=== PATIENT | female | born 1945 | race Caucasian/White ===

== ENCOUNTER 2019-09-06 12:38 | Outpatient (CLI) | payer MEDICARE, SELFPAY ==
--- NOTE | ~2019-09-06 | CT_ITS ---
EXAMINATION: CT chest abdomen pelvis w con DATE: 09/06/2019 17:13 CDT INDICATION: Renal cell carcinoma. TECHNIQUE: Computed tomography (CT) of the chest, abdomen, and pelvis was performed with 100 cc Omnip aque 350 intravenous contrast. The dose-length product was 957.58 mGy-cm. Automated exposure control and iterative reconstruction technique were employed. COMPARISON: CT dated 12/25/2018 FINDINGS: CHEST CT: Heart size is normal. There are bilateral breast implants with areas of capsular calcification. Thyro id gland is unremarkable. There are nonenlarged mediastinal lymph nodes, likely reactive. There is a right lower lobe 6 x 3 mm nodule, image 53. There are groundglass densities of the right upper lobe. Stable 6 mm right middle lobe nodule, image 68 there is a 6 mm lingular nodule, image 75. This does n ot appear significantly changed from prior study. No endobronchial lesions. No significant pleural or pericardial effusions.. ABDOMEN/PELVIS CT: There is atherosclerosis of the aorta without evidence for aneurysm. Status post left nephrectomy and adrenalectomy. No free air or free fluid. No lymphadenopathy. The liver, spleen, pancreas, right adrenal gland and right kidney are unremarkable. There are gallsto annie. There is a ventral hernia containing nonobstructed small bowel. There is a periumbilical hernia containing nonobstructed small bowel. No evidence for bowel obstruction. Colonic diverticulosis witho ut evidence for diverticulitis. Normal appendix. No abnormal pelvic masses or fluid collections. Mild -moderate thoracic and lumbar spondylosis. No osteolytic or osteoblastic lesions. IMPRESSION: 1. New supraumbilical and periumbilical ventral hernias containing nonobstructed small bowel. 2: Small bilateral pulmonary nodules measuring 6 mm or less. The right lower lobe nodule on image 53 not definitely visualized on prior examinations. Recommend follow-up low dose CT in 6 months. 3: Status post left nephrectomy with adrenalectomy. No evidence for residual/recurrent neoplasm. 4: Cholelithiasis. Reviewed, dictated and finalized at location A. IMPRESSION: 1. New supraumbilical and periumbilical ventral hernias containing nonobstructe d small bowel. 2: Small bilateral pulmonary nodules measuring 6 mm or less. The right lower lo be nodule on image 53 not definitely visualized on prior examinations. Recommen d follow-up low dose CT in 6 months. 3: Status post left nephrectomy with adrenalectomy. No evidence for residual/re current neoplasm. 4: Cholelithiasis.
[2019-09-06 13:35] LABS: Estimated Glomerular Filt Rate 37
== END 2019-09-06 12:39 | disposition home or self-care (01) ==
PROVIDERS: PCP Family Medicine; Visit Provider Internal Medicine Hematology & Oncology
DX: C64.1 Malignant neoplasm of right kidney, except renal pelvis (principal); K42.9 Umbilical hernia without obstruction or gangrene; R91.8 Other nonspecific abnormal finding of lung field; Z90.5 Acquired absence of kidney; K80.20 Calculus of gallbladder without cholecystitis without obstruction
CPT/HCPCS: 36415; 71260; 74177; Q9967

== ENCOUNTER 2020-02-01 09:21 | Outpatient (CLI) | payer MEDICARE, SELFPAY ==
--- NOTE | ~2020-02-01 | CT_ITS ---
EXAMINATION: CT chest abdomen pelvis w con DATE: 02/01/2020 10:30 INDICATION: Malignant neoplasm of the right kidney TECHNIQUE: Computed tomography (CT) of the chest, abdomen, and pelvis was performed with 100 mL Omnip aque-350 intravenous contrast. Automated exposure control and iterative reconstruction technique were employed. The dose-length product was 1188.41 mGy-cm. COMPARISON: Chest CT dated 09/06/[address] of the abdomen and pelvis dated 12/25/2018 FINDINGS: CHEST CT: No interval change in a pair of 4-5 mm nodules along the anterior margin of the superior segment of t he right lower lobe. Small calcified nodule in the right upper lobe consistent with old granulomatous disease. Unchanged small flat triangular intrafissural lymph node along the left major fissure. Unch anged pleural parenchymal scarring along the posterior medial right lower lobe along side several pro minent endplate osteophytes at the mid to lower thoracic spine. No new or enlarging pulmonary nodules identified. No pneumonia, pulmonary edema or pleural effusion. Unchanged 5 mm nodules in the right m iddle lobe and lingula. Heart size is normal. No pericardial effusion. No pathologically enlarged tho racic lymphadenopathy. Peripheral calcifications at bilateral breast implants. Chronic mild anterior wedging at T8. ABDOMEN/PELVIS CT: Calcified gallstones within the normal-appearing gallbladder. Liver, spleen, right adrenal gland and kidney are normal. Left adrenal gland and kidney are likely surgically absent. 1.4 cm avidly enhancin g nodule at the head of the pancreas raising concern for malignancy either primary or metastatic. Mul tiple loops of nonobstructed small bowel extend into a wide mouthed ventral hernia. Colon and appendi x are normal. Bladder, uterus and bilateral adnexa are unremarkable. No free intraperitoneal gas or f luid. No pathologically enlarged abdominal or pelvic lymphadenopathy. Mild lumbar dextrocurvature wit h moderate to severe facet osteoarthritis. No suspicious lytic or blastic bone lesions. IMPRESSION: 1. New 1.4 cm avidly enhancing nodule at the head of the pancreas concerning for malignancy. The incr eased enhancement would be more typical of metastatic renal cell carcinoma rather than primary pancre atic adenocarcinoma. No other lesions suspicious for metastatic disease. 2. No interval change in a few 5 mm smaller pulmonary nodules, most likely benign but would recommend continued radiographic follow-up. 3. Cholelithiasis. 4. Wide mouth ventral hernia containing multiple loops of nonobstructed bowel. Reviewed, dictated and finalized at location B. IMPRESSION: 1. New 1.4 cm avidly enhancing nodule at the head of the pancreas concerning fo r malignancy. The increased enhancement would be more typical of metastatic avani al cell carcinoma rather than primary pancreatic adenocarcinoma. No other lesio ns suspicious for metastatic disease. 2. No interval change in a few 5 mm smaller pulmonary nodules, most likely reagan gn but would recommend continued radiographic follow-up. 3. Cholelithiasis. 4. Wide mouth ventral hernia containing multiple loops of nonobstructed bowel.
[2020-02-01 10:02] LABS: Estimated Glomerular Filt Rate 44
== END 2020-02-01 09:22 | disposition home or self-care (01) ==
PROVIDERS: PCP Family Medicine; Visit Provider Internal Medicine Hematology & Oncology
DX: C64.1 Malignant neoplasm of right kidney, except renal pelvis (principal); K86.89 Other specified diseases of pancreas; K80.20 Calculus of gallbladder without cholecystitis without obstruction; K43.9 Ventral hernia without obstruction or gangrene
CPT/HCPCS: 71260; 74177; Q9967

== ENCOUNTER 2020-02-11 08:16 | Outpatient (CLI) | payer MEDICARE, SELFPAY ==
[2020-02-11 08:39] LABS: Basophils Percent Auto 0.5 % (0.2-1.2); Eosinophils Absolute Auto 0.2 K/mm3 (0-0.3); Eosinophils Percent Auto 3.5 % (0-4.4); Hematocrit 36.6 % (37.0-47.0); Hemoglobin 12.4 g/dL (12.0-15.0); Immature Granulocyte Absolute 0.03 K/mm3 (0.00-0.031); Immature Granulocyte Percent A 0.5 % (0-0.5); Lymphocytes Absolute Auto 1.31 K/mm3 (0.9-3.2); Lymphocytes Percent Auto 19.8 % (18.3-44.2); Mean Corpuscular HGB Conc 33.9 g/dl (32-36); Mean Corpuscular Hemoglobin 30.4 pg (26-34); Mean Corpuscular Volume 89.7 fl (80-100); Mean Platelet Volume 11.9 fl (7.4-10.4); Monocytes Absolute Auto 0.4 K/mm3 (0.1-0.6); Monocytes Percent Auto 6.2 % (2.6-8.5); Neutrophils Absolute Auto 4.6 K/mm3 (1.3-6.7); Neutrophils Percent Auto 69.5 % (45.5-73.1); Platelet Count Result 154 k/mm3 (150-375); Red Blood Count 4.08 M/mm3 (4.2-5.4); Red Cell Distribution Width 11.5 % (11.5-14.5); White Blood Count 6.6 K/mm3 (4.5-10.0)
[2020-02-11 08:48] LABS: Blood Urea Nitrogen 26 mg/dL (8-26); Carbon Dioxide 23 mmol/L (22-30); Chloride 102 mmol/L (98-109); Estimated Glomerular Filt Rate 40; Glucose 248 mg/dL (70-105); Potassium 4.9 mmol/L (3.5-4.9); Sodium 139 mmol/L (138-146)
[2020-02-11 11:33] LABS: Alanine Aminotransferase 13 U/L (4-35); Albumin Level 4.4 g/dL (3.5-5.1); Alkaline Phosphatase 88 U/L (38-126); Anion Gap 10 mmol/L (8-16); Aspartate Amino Transferase 21 U/L (14-36); Bilirubin,Total 0.4 mg/dL (0.2-1.3); Blood Urea Nitrogen 27 mg/dL (7-17); Calcium 9.2 mg/dL (8.4-10.2); Carbon Dioxide 23 mmol/L (22-30); Chloride 103 mmol/L (98-107); Estimated Glomerular Filt Rate 44; Glucose 257 mg/dL (65-105); Potassium 5.3 mmol/L (3.4-5.0); Sodium 136 mmol/L (137-145)
[2020-02-14 06:32] LABS: CA 19-9 9 U/mL (<34)
== END 2020-02-11 08:17 | disposition home or self-care (01) ==
PROVIDERS: PCP Family Medicine; Visit Provider Internal Medicine Hematology & Oncology
DX: C64.2 Malignant neoplasm of left kidney, except renal pelvis (principal); K86.89 Other specified diseases of pancreas
CPT/HCPCS: 36415; 80048; 80053; 85025; 86301

== ENCOUNTER 2020-02-19 08:48 | Outpatient (CLI) | payer MEDICARE, SELFPAY ==
--- NOTE | ~2020-02-19 | PE_ITS ---
EXAMINATION: PET skull to mid thigh DATE: 02/19/2020 12:50 INDICATION: Malignant neoplasm of left kidney. TECHNIQUE: Blood glucose level was 115 mg/dL. 9.844 mCi of 18-fluorodeoxyglucose (18-FDG) was adminis tered i.v. Low dose computed tomography (CT) images were acquired from the base of the brain to the p roximal thighs for attenuation correction and anatomic localization. Automated exposure control was e mployed. Dose-length product (DLP) was 847 mGy-cm. Positron emission tomography (PET) images were acq uired in the same distribution. COMPARISON: CT 02/01/2020, 01/16/2018, 12/25/2018, PET/CT 01/26/2018 FINDINGS: Head/neck: There is increased activity in the oral cavity, oropharynx, left submandibular gland, and glottis without CT correlate, likely physiologic. There are no pathologically enlarged lymph nodes. Chest: The lungs demonstrate mild scarring in paraspinal right lower lobe. No pleural effusion. Cardi omegaly is noted. No pericardial effusion. There is ectasia of ascending aorta measuring 4.1 cm. Ther e are bilateral breast implants. There are changes of left mastectomy. Abdomen/pelvis/proximal thighs: The liver is normal. There are gallstones in the gallbladder, which i s normal in size. The spleen is normal. The pancreas is normal. Right adrenal gland and right kidney are normal. There are changes of left nephrectomy and left adrenalectomy. There is a ventral hernia c ontaining nonobstructed small bowel. There is diverticulosis of the colon without evidence of diverti culitis. There are no pathologically enlarged lymph nodes. There is no free intraperitoneal fluid. IMPRESSION: 1. Normal pancreas. The hyperenhancing mass in the head of the pancreas seen by CT on 02/01/2020 is not visible and does not demonstrate increased activity. This finding was not present on 12/25/2018 and i s most likely metastatic renal cell carcinoma. Neuroendocrine tumor of the pancreas may have the same appearance. Reviewed, dictated and finalized at location A. IMPRESSION: 1. Normal pancreas. The hyperenhancing mass in the head of the pancreas seen by CT on 02/01/2020 is not visible and does not demonstrate increased activity. Thi s finding was not present on 12/25/2018 and is most likely metastatic renal cell carcinoma. Neuroendocrine tumor of the pancreas may have the same appearance.
[2020-02-19 09:38] LABS: Glucose Point of Care 115 (65-105)
== END 2020-02-19 08:49 | disposition home or self-care (01) ==
PROVIDERS: PCP Family Medicine; Visit Provider Internal Medicine Hematology & Oncology
DX: C64.2 Malignant neoplasm of left kidney, except renal pelvis (principal)
CPT/HCPCS: 78815; A9552

== ENCOUNTER 2020-02-28 08:40 | Outpatient (CLI) | payer MEDICARE, SELFPAY ==
--- NOTE | ~2020-02-28 | MR_ITS ---
EXAMINATION: MR abdomen wo/w con DATE: 02/28/2020 10:26 INDICATION: Secondary malignant neoplasm of the pancreas. TECHNIQUE: Magnetic resonance imaging (MRI) of the abdomen was performed without and with 13 mL Multi Blanco intravenous contrast. Sequences included coronal T2-weighted FS FSE, coronal and axial FIESTA F S, coronal LAVA-flex, axial LAVA, axial T2-weighted FSE, axial T1-weighted dual-echo FSPGR, axial STI R FSE, and axial DWI. Postcontrast sequences included coronal LAVA-flex and a time course of axial LA VA. COMPARISON: CT 02/01/2020, 12/25/2018, PET CT 02/19/2020 FINDINGS: There are bilateral breast implants. The liver and spleen are normal. There are gallstones in the gal lbladder, which is distended, likely secondary to fasting. There is a 1.4 cm hyperenhancing mass in t he head of the pancreas. The right adrenal gland is normal. There is cortical thinning in right kidne y. There is a 7 mm cyst in right kidney. There are changes of left nephrectomy and adrenalectomy. The re is a ventral hernia containing nonobstructed small bowel. There are no dilated loops of bowel. The re are no pathologically enlarged lymph nodes. There is no free intraperitoneal fluid. IMPRESSION: 1. 1.4 cm hyperenhancing mass in the head of the pancreas, new from 12/25/2018, most likely metastatic renal cell carcinoma. Neuroendocrine tumor of the pancreas may have the same appearance. 2. Ventral hernia containing nonobstructed small bowel. Reviewed, dictated and finalized at location A. IMPRESSION: 1. 1.4 cm hyperenhancing mass in the head of the pancreas, new from 12/25/2018, most likely metastatic renal cell carcinoma. Neuroendocrine tumor of the pancre as may have the same appearance. 2. Ventral hernia containing nonobstructed small bowel.
[2020-02-28 09:46] LABS: Estimated Glomerular Filt Rate 44
== END 2020-02-28 08:41 | disposition home or self-care (01) ==
PROVIDERS: Visit Provider Radiology Radiation Oncology
DX: C79.89 Secondary malignant neoplasm of other specified sites (principal); C64.2 Malignant neoplasm of left kidney, except renal pelvis; K43.9 Ventral hernia without obstruction or gangrene
CPT/HCPCS: 74183; A9577

== ENCOUNTER 2020-05-12 10:52 | Outpatient (CLI) | payer MEDICARE, SELFPAY ==
--- NOTE | ~2020-05-12 | CT_ITS ---
EXAMINATION: CT abdomen pelvis w con EXAM DATE: 05/12/2020 11:32 INDICATION: Malignant neoplasm of the left kidney. Enhancing pancreatic head nodule on previous study TECHNIQUE: Spiral CT of the abdomen and pelvis was performed following intravenous injection of 100 m L Omnipaque 350. Axial, coronal and sagittal images were reviewed. The dose-length product (DLP) fo r this examination was 803.85 mGy-cm. The exposure was tailored according to patient size (auto mA e xposure control), and iterative reconstruction (ASIR) was used as additional dose reduction technique . Comparison is made to prior examination from 02/01/2020. FINDINGS: The liver, spleen, adrenal glands and pancreas are unremarkable (previously enhancing pancr eatic head region no longer identified which could be phasic or from interval treatment). There are gallstones within an otherwise unremarkable gallbladder. No evidence of obstructive biliary disease. Status post left-sided nephrectomy, unremarkable nephrectomy bed. Right kidney is unremarkable. Th e uterus is unremarkable. The bladder is unremarkable. There is no retroperitoneal or pelvic lympha denopathy. There are 2 large left periumbilical, supraumbilical hernias containing nonobstructed lo ops of small bowel. The appendix is normal. The stomach and small bowel are unremarkable. There is expected amount of c olonic stool. No free intraperitoneal gas. The heart is normal in size. There are no pericardial or pleural effusions. There is mild basilar bronchiectasis. The bones are unremarkable. IMPRESSION: 1. Stable surgical changes from left-sided nephrectomy. 2. Unremarkable pancreas. No evidence of metastatic disease. 3. Large abdominal wall hernias. 4. Cholelithiasis. 5. Mild bronchiectasis. Reviewed, dictated and finalized at location A. AL COMPENSATION DIRECTOR
[2020-05-13 11:23] LABS: Estimated Glomerular Filt Rate 44
== END 2020-05-12 10:53 | disposition home or self-care (01) ==
PROVIDERS: PCP Internal Medicine Hematology & Oncology; Visit Provider Internal Medicine Hematology & Oncology
DX: C64.2 Malignant neoplasm of left kidney, except renal pelvis (principal); K44.9 Diaphragmatic hernia without obstruction or gangrene; K80.20 Calculus of gallbladder without cholecystitis without obstruction
CPT/HCPCS: 74177; Q9967

== ENCOUNTER 2020-05-14 13:06 | Outpatient (CLI) | payer MEDICARE, SELFPAY ==
[2020-05-14 13:22] LABS: Basophils Percent Auto 0.5 % (0.2-1.2); Eosinophils Absolute Auto 0.2 K/mm3 (0-0.3); Eosinophils Percent Auto 2.9 % (0-4.4); Hematocrit 36.7 % (37.0-47.0); Hemoglobin 12.3 g/dL (12.0-15.0); Immature Granulocyte Absolute 0.03 K/mm3 (0.00-0.031); Immature Granulocyte Percent A 0.4 % (0-0.5); Lymphocytes Absolute Auto 1.64 K/mm3 (0.9-3.2); Lymphocytes Percent Auto 20.1 % (18.3-44.2); Mean Corpuscular HGB Conc 33.5 g/dl (32-36); Mean Corpuscular Hemoglobin 30.6 pg (26-34); Mean Corpuscular Volume 91.3 fl (80-100); Mean Platelet Volume 11.2 fl (7.4-10.4); Monocytes Absolute Auto 0.6 K/mm3 (0.1-0.6); Monocytes Percent Auto 7.6 % (2.6-8.5); Neutrophils Absolute Auto 5.6 K/mm3 (1.3-6.7); Neutrophils Percent Auto 68.5 % (45.5-73.1); Platelet Count Result 176 k/mm3 (150-375); Red Blood Count 4.02 M/mm3 (4.2-5.4); Red Cell Distribution Width 11.9 % (11.5-14.5); White Blood Count 8.2 K/mm3 (4.5-10.0)
[2020-05-14 14:25] LABS: Blood Urea Nitrogen 33 mg/dL (8-26); Carbon Dioxide 25 mmol/L (22-30); Chloride 106 mmol/L (98-109); Estimated Glomerular Filt Rate 36; Potassium 4.4 mmol/L (3.5-4.9); Sodium 142 mmol/L (138-146)
[2020-05-14 14:26] LABS: Glucose 126 mg/dL (70-105)
[2020-05-14 16:33] LABS: Alanine Aminotransferase 17 U/L (4-35); Albumin Level 4.2 g/dL (3.5-5.1); Alkaline Phosphatase 113 U/L (38-126); Anion Gap 10 mmol/L (8-16); Aspartate Amino Transferase 27 U/L (14-36); Bilirubin,Total 0.4 mg/dL (0.2-1.3); Blood Urea Nitrogen 31 mg/dL (7-17); Calcium 9.4 mg/dL (8.4-10.2); Carbon Dioxide 26 mmol/L (22-30); Chloride 105 mmol/L (98-107); Estimated Glomerular Filt Rate 44; Glucose 129 mg/dL (65-105); Potassium 4.7 mmol/L (3.4-5.0); Sodium 141 mmol/L (137-145)
== END 2020-05-14 13:07 | disposition home or self-care (01) ==
PROVIDERS: PCP Internal Medicine Hematology & Oncology; Visit Provider Internal Medicine Hematology & Oncology
DX: C64.2 Malignant neoplasm of left kidney, except renal pelvis (principal)
CPT/HCPCS: 36415; 80048; 80053; 85025

== ENCOUNTER 2020-08-06 10:51 | Outpatient (CLI) | payer MEDICARE, SELFPAY ==
--- NOTE | ~2020-08-06 | CT_ITS ---
EXAMINATION: CT abdomen pelvis w con INDICATION: Follow-up malignant neoplasm of the left kidney excluding renal pelvis TECHNIQUE: Computed tomographic images of the abdomen and pelvis were obtained after the administrati on of 100 cc of Omnipaque 350 intravenous contrast. The dose-length product (DLP) was 1196.15 mGy-cm. Automated exposure control and iterative reconstruction technique were employed. COMPARISON: 05/12/2020, 02/28/2020 FINDINGS: Minimal dependent atelectasis is present in the lung bases. The heart size is normal. There are changes of left mastectomy with implant reconstruction. The liver, spleen, pancreas, and right a drenal gland are normal. An enhancing mass in the head of the pancreas previously described on MRI is not definitely seen. Stones are present in the nondistended gallbladder. There are changes of left n ephrectomy and adrenalectomy. There is cortical thinning of the right kidney. A 7 mm cyst is noted in the lower pole of the right kidney. There are no pathologically enlarged abdominal or pelvic lymph n odes. There is no free intraperitoneal gas or evidence of bowel obstruction. A moderate volume of col onic stool is present. There are widemouth midline ventral hernias containing nonobstructed large and small bowel. The appendix is normal. There is moderate lumbar spondylosis. IMPRESSION: 1. Changes of right nephrectomy and adrenalectomy without evidence of metastatic disease. 2. Multiple ventral hernias containing nonobstructed large and small bowel. Reviewed, dictated and finalized at location A. ICATION SUPPORT ADMINISTRATOR IMPRESSION: 1. Changes of right nephrectomy and adrenalectomy without evidence of metastati c disease. 2. Multiple ventral hernias containing nonobstructed large and small bowel.
[2020-08-06 11:24] LABS: Estimated Glomerular Filt Rate 44
== END 2020-08-06 10:52 | disposition home or self-care (01) ==
PROVIDERS: PCP Internal Medicine Hematology & Oncology; Visit Provider Internal Medicine Hematology & Oncology
DX: C64.2 Malignant neoplasm of left kidney, except renal pelvis (principal); Z90.5 Acquired absence of kidney; K43.9 Ventral hernia without obstruction or gangrene; M47.816 Spondylosis without myelopathy or radiculopathy, lumbar region
CPT/HCPCS: 74177; Q9967

== ENCOUNTER 2020-08-08 09:23 | Outpatient (CLI) | payer MEDICARE, SELFPAY ==
[2020-08-08 09:39] LABS: Basophils Percent Auto 0.6 % (0.2-1.2); Eosinophils Absolute Auto 0.2 K/mm3 (0-0.3); Eosinophils Percent Auto 2.5 % (0-4.4); Hematocrit 37.7 % (37.0-47.0); Hemoglobin 12.6 g/dL (12.0-15.0); Immature Granulocyte Absolute 0.01 K/mm3 (0.00-0.031); Immature Granulocyte Percent A 0.2 % (0-0.5); Lymphocytes Absolute Auto 1.27 K/mm3 (0.9-3.2); Lymphocytes Percent Auto 19.6 % (18.3-44.2); Mean Corpuscular HGB Conc 33.4 g/dl (32-36); Mean Corpuscular Hemoglobin 30.6 pg (26-34); Mean Corpuscular Volume 91.5 fl (80-100); Mean Platelet Volume 11.8 fl (7.4-10.4); Monocytes Absolute Auto 0.4 K/mm3 (0.1-0.6); Monocytes Percent Auto 6.5 % (2.6-8.5); Neutrophils Absolute Auto 4.6 K/mm3 (1.3-6.7); Neutrophils Percent Auto 70.6 % (45.5-73.1); Platelet Count Result 169 k/mm3 (150-375); Red Blood Count 4.12 M/mm3 (4.2-5.4); Red Cell Distribution Width 11.8 % (11.5-14.5); White Blood Count 6.5 K/mm3 (4.5-10.0)
[2020-08-08 09:44] LABS: Blood Urea Nitrogen 27 mg/dL (8-26); Carbon Dioxide 26 mmol/L (22-30); Chloride 106 mmol/L (98-109); Estimated Glomerular Filt Rate 40; Glucose 128 mg/dL (70-105); Potassium 4.5 mmol/L (3.5-4.9); Sodium 141 mmol/L (138-146)
[2020-08-08 12:45] LABS: Alanine Aminotransferase 14 U/L (4-35); Albumin Level 4.1 g/dL (3.5-5.1); Alkaline Phosphatase 91 U/L (38-126); Anion Gap 8 mmol/L (8-16); Aspartate Amino Transferase 25 U/L (14-36); Bilirubin,Total 0.4 mg/dL (0.2-1.3); Blood Urea Nitrogen 25 mg/dL (7-17); Carbon Dioxide 26 mmol/L (22-30); Chloride 107 mmol/L (98-107); Estimated Glomerular Filt Rate 40; Glucose 128 mg/dL (65-105); Potassium 4.9 mmol/L (3.4-5.0); Sodium 141 mmol/L (137-145)
== END 2020-08-08 09:24 | disposition home or self-care (01) ==
LOC: ANHLAB 09:25
PROVIDERS: Visit Provider Internal Medicine Hematology & Oncology
DX: C64.2 Malignant neoplasm of left kidney, except renal pelvis (principal)
CPT/HCPCS: 36415; 80048; 80053; 85025

== ENCOUNTER 2020-11-14 09:31 | Outpatient (CLI) | payer MEDICARE, SELFPAY ==
[2020-11-14 10:06] LABS: Basophils Percent Auto 0.6 % (0.2-1.2); Eosinophils Absolute Auto 0.2 K/mm3 (0-0.3); Eosinophils Percent Auto 3.2 % (0-4.4); Hematocrit 37.6 % (37.0-47.0); Hemoglobin 12.8 g/dL (12.0-15.0); Immature Granulocyte Absolute 0.03 K/mm3 (0.00-0.031); Immature Granulocyte Percent A 0.4 % (0-0.5); Lymphocytes Percent Auto 17.4 % (18.3-44.2); Mean Corpuscular Hemoglobin 30.5 pg (26-34); Mean Corpuscular Volume 89.7 fl (80-100); Mean Platelet Volume 10.8 fl (7.4-10.4); Monocytes Absolute Auto 0.4 K/mm3 (0.1-0.6); Monocytes Percent Auto 6.4 % (2.6-8.5); Platelet Count Result 168 k/mm3 (150-375); Red Blood Count 4.19 M/mm3 (4.2-5.4); Red Cell Distribution Width 11.7 % (11.5-14.5); White Blood Count 6.9 K/mm3 (4.5-10.0)
[2020-11-14 10:22] LABS: Blood Urea Nitrogen 24 mg/dL (8-26); Carbon Dioxide 24 mmol/L (22-30); Chloride 107 mmol/L (98-109); Estimated Glomerular Filt Rate 36; Glucose 196 mg/dL (70-105); Potassium 4.6 mmol/L (3.5-4.9); Sodium 141 mmol/L (138-146)
[2020-11-14 12:35] LABS: Alanine Aminotransferase 16 U/L (4-35); Albumin Level 4.2 g/dL (3.5-5.1); Alkaline Phosphatase 87 U/L (38-126); Anion Gap 11 mmol/L (8-16); Aspartate Amino Transferase 23 U/L (14-36); Bilirubin,Total 0.4 mg/dL (0.2-1.3); Blood Urea Nitrogen 24 mg/dL (7-17); Calcium 9.1 mg/dL (8.4-10.2); Carbon Dioxide 20 mmol/L (22-30); Chloride 110 mmol/L (98-107); Estimated Glomerular Filt Rate 44; Glucose 188 mg/dL (65-105); Potassium 4.8 mmol/L (3.4-5.0); Sodium 141 mmol/L (137-145)
== END 2020-11-14 09:32 | disposition home or self-care (01) ==
LOC: ANHLAB 09:33
PROVIDERS: Internal Medicine Hematology & Oncology; PCP Family Medicine; Visit Provider Nurse Practitioner Family
DX: C64.2 Malignant neoplasm of left kidney, except renal pelvis (principal)
CPT/HCPCS: 36415; 80048; 80053; 85025

== ENCOUNTER 2021-01-30 08:38 | Outpatient (CLI) | payer MEDICARE, SELFPAY ==
--- NOTE | ~2021-01-30 | CT_ITS ---
EXAMINATION: CT abdomen pelvis w con DATE: 01/30/2021 09:18 INDICATION: Malignant neoplasm of the left kidney excluding the renal pelvis. TECHNIQUE: Computed tomography (CT) of the abdomen and pelvis was performed with 100 mL Omnipaque-350 intravenous contrast. Automated exposure control and iterative reconstruction technique were employe d. The dose-length product was 806.95 mGy-cm. COMPARISON: 08/06/2020 FINDINGS: Atelectasis/scarring at the posterior medial aspect of the right lower lobe along side multiple promi nent thoracic endplate osteophytes. Heart size normal. No pericardial or pleural effusion. Left maste ctomy with breast implant. A couple large peripherally calcified gallstones in the otherwise normal-a ppearing gallbladder with no wall thickening or pericholecystic inflammatory change to suggest acute cholecystitis. Liver, spleen, pancreas and right adrenal gland are normal. Status post left nephrecto my and adrenalectomy for reported kidney cancer. No abnormal soft tissue at the nephrectomy bed to jacobs ggest residual/recurrent disease. 6 mm cyst at the lower pole of the right kidney. Stable appearance of a few small regions of cortical scarring in the right kidney consistent with sequela of prior infe ction or infarction. No interval change in a few wide mouth ventral hernias containing loops of nonob structed bowel. Bowels are otherwise unremarkable including a normal appendix. Bladder, uterus and bi lateral adnexa are unremarkable. No free intraperitoneal gas or fluid. No pathologically enlarged abd ominal or pelvic lymphadenopathy. Mild to moderate degenerative skeletal changes in the spine and pel vis. IMPRESSION: 1. Change of right nephrectomy and adrenalectomy without evident residual, recurrent or metastatic di sease. 2. Stable appearance of multiple ventral hernias containing nonobstructed bowel. 3. Cholelithiasis. Reviewed, dictated and finalized at location A. IMPRESSION: 1. Change of right nephrectomy and adrenalectomy without evident residual, recu rrent or metastatic disease. 2. Stable appearance of multiple ventral hernias containing nonobstructed bowel . 3. Cholelithiasis.
[2021-01-30 09:09] LABS: Estimated Glomerular Filt Rate 48
== END 2021-01-30 08:39 | disposition home or self-care (01) ==
PROVIDERS: PCP Family Medicine; Visit Provider Internal Medicine Hematology & Oncology
DX: C64.2 Malignant neoplasm of left kidney, except renal pelvis (principal); K80.20 Calculus of gallbladder without cholecystitis without obstruction; K43.9 Ventral hernia without obstruction or gangrene; Z90.5 Acquired absence of kidney
CPT/HCPCS: 74177; Q9967

== ENCOUNTER 2021-02-06 09:35 | Outpatient (CLI) | payer MEDICARE, SELFPAY ==
[2021-02-06 10:04] LABS: Basophils Absolute Auto 0.1 K/mm3 (0.0-0.1); Basophils Percent Auto 0.6 % (0.2-1.2); Eosinophils Absolute Auto 0.2 K/mm3 (0-0.3); Eosinophils Percent Auto 2.6 % (0-4.4); Hematocrit 37.7 % (37.0-47.0); Hemoglobin 12.9 g/dL (12.0-15.0); Immature Granulocyte Absolute 0.01 K/mm3 (0.00-0.031); Immature Granulocyte Percent A 0.1 % (0-0.5); Lymphocytes Absolute Auto 1.35 K/mm3 (0.9-3.2); Lymphocytes Percent Auto 17.3 % (18.3-44.2); Mean Corpuscular HGB Conc 34.2 g/dl (32-36); Mean Corpuscular Hemoglobin 30.4 pg (26-34); Mean Corpuscular Volume 88.9 fl (80-100); Mean Platelet Volume 11.3 fl (7.4-10.4); Monocytes Absolute Auto 0.5 K/mm3 (0.1-0.6); Monocytes Percent Auto 6.7 % (2.6-8.5); Neutrophils Absolute Auto 5.7 K/mm3 (1.3-6.7); Neutrophils Percent Auto 72.7 % (45.5-73.1); Platelet Count Result 160 k/mm3 (150-375); Red Blood Count 4.24 M/mm3 (4.2-5.4); Red Cell Distribution Width 11.8 % (11.5-14.5); White Blood Count 7.8 K/mm3 (4.5-10.0)
[2021-02-06 10:11] LABS: Blood Urea Nitrogen 19 mg/dL (8-26); Carbon Dioxide 24 mmol/L (22-30); Chloride 106 mmol/L (98-109); Estimated Glomerular Filt Rate 44; Glucose 151 mg/dL (70-105); Potassium 4.9 mmol/L (3.5-4.9); Sodium 140 mmol/L (138-146)
[2021-02-06 12:27] LABS: Alanine Aminotransferase 18 U/L (4-35); Albumin Level 4.4 g/dL (3.5-5.1); Alkaline Phosphatase 105 U/L (38-126); Anion Gap 8 mmol/L (8-16); Aspartate Amino Transferase 48 U/L (14-36); Bilirubin,Total 0.4 mg/dL (0.2-1.3); Blood Urea Nitrogen 19 mg/dL (7-17); Calcium 9.1 mg/dL (8.4-10.2); Carbon Dioxide 22 mmol/L (22-30); Chloride 108 mmol/L (98-107); Estimated Glomerular Filt Rate 48; Glucose 150 mg/dL (65-110); Potassium 4.9 mmol/L (3.4-5.0); Sodium 138 mmol/L (137-145)
== END 2021-02-06 09:36 | disposition home or self-care (01) ==
LOC: ANHLAB 09:37
PROVIDERS: PCP Family Medicine; Visit Provider Internal Medicine Hematology & Oncology
DX: C64.2 Malignant neoplasm of left kidney, except renal pelvis (principal)
CPT/HCPCS: 36415; 80048; 80053; 85025

== ENCOUNTER 2021-06-26 08:21 | Outpatient (CLI) | payer MEDICARE, SELFPAY ==
--- NOTE | ~2021-06-26 | CT_ITS ---
EXAMINATION: CT abdomen pelvis w con DATE: 06/26/2021 09:11 INDICATION: Malignant neoplasm of the left kidney TECHNIQUE: Computed tomography (CT) of the abdomen and pelvis was performed with 100 cc Omnipaque 350 intravenous contrast. The dose-length product was 790.06 mGy-cm. Automated exposure control and iter ative reconstruction technique were employed. COMPARISON: CT dated 01/30/2021. FINDINGS: There is right lower lobe atelectasis/scarring. Otherwise, lung bases unremarkable. There i s a left breast implant. Heart size normal. No significant vascular abnormality. No lymphadenopathy. Status post left nephrectomy and adrenalectomy. No evidence for abnormal mass or fluid collection in the nephrectomy bed. There are gallstones. The liver, spleen, pancreas, right adrenal gland are unrem arkable. There are multiple ventral hernias containing nonobstructed small bowel. No bowel obstructio n in general. Colonic diverticulosis without evidence for diverticulitis. No abnormal pelvic masses o r fluid collections. Uterus is atrophic. There are degenerative changes symmetrically in the sacroili ac joints. Mild osteoarthritis of the hips. IMPRESSION: 1. Status post left nephrectomy/adrenalectomy without evidence for residual/recurrent malignancy. 2: Stable ventral hernias containing nonobstructed small bowel. 3: Cholelithiasis. Reviewed, dictated and finalized at location B. AR RACER IMPRESSION: 1. Status post left nephrectomy/adrenalectomy without evidence for residual/rec urrent malignancy. 2: Stable ventral hernias containing nonobstructed small bowel. 3: Cholelithiasis.
[2021-06-26 08:58] LABS: Estimated Glomerular Filt Rate 48
== END 2021-06-26 08:22 | disposition home or self-care (01) ==
PROVIDERS: PCP Family Medicine; Visit Provider Internal Medicine Hematology & Oncology
DX: C64.2 Malignant neoplasm of left kidney, except renal pelvis (principal); Z90.5 Acquired absence of kidney; K43.9 Ventral hernia without obstruction or gangrene; K80.20 Calculus of gallbladder without cholecystitis without obstruction
CPT/HCPCS: 74177; Q9967

== ENCOUNTER 2021-07-10 13:14 | Outpatient (CLI) | payer MEDICARE, SELFPAY ==
[2021-07-10 13:32] LABS: Basophils Absolute Auto 0.1 K/mm3 (0.0-0.1); Basophils Percent Auto 0.7 % (0.2-1.2); Eosinophils Absolute Auto 0.2 K/mm3 (0-0.3); Eosinophils Percent Auto 2.7 % (0-4.4); Hematocrit 40.5 % (37.0-47.0); Hemoglobin 13.6 g/dL (12.0-15.0); Immature Granulocyte Absolute 0.02 K/mm3 (0.00-0.031); Immature Granulocyte Percent A 0.3 % (0-0.5); Lymphocytes Absolute Auto 1.61 K/mm3 (0.9-3.2); Lymphocytes Percent Auto 22.5 % (18.3-44.2); Mean Corpuscular HGB Conc 33.6 g/dl (32-36); Mean Corpuscular Hemoglobin 30.8 pg (26-34); Mean Corpuscular Volume 91.6 fl (80-100); Mean Platelet Volume 11.7 fl (7.4-10.4); Monocytes Absolute Auto 0.5 K/mm3 (0.1-0.6); Neutrophils Absolute Auto 4.8 K/mm3 (1.3-6.7); Neutrophils Percent Auto 66.8 % (45.5-73.1); Platelet Count Result 175 k/mm3 (150-375); Red Blood Count 4.42 M/mm3 (4.2-5.4); Red Cell Distribution Width 11.8 % (11.5-14.5); White Blood Count 7.1 K/mm3 (4.5-10.0)
[2021-07-10 13:35] LABS: Blood Urea Nitrogen 26 mg/dL (8-26); Carbon Dioxide 24 mmol/L (22-30); Chloride 107 mmol/L (98-109); Estimated Glomerular Filt Rate 48; Glucose 163 mg/dL (70-105); Potassium 4.5 mmol/L (3.5-4.9); Sodium 141 mmol/L (138-146)
[2021-07-10 16:24] LABS: Alanine Aminotransferase 15 U/L (4-35); Albumin Level 4.4 g/dL (3.5-5.1); Alkaline Phosphatase 117 U/L (38-126); Anion Gap 11 mmol/L (8-16); Aspartate Amino Transferase 36 U/L (14-36); Bilirubin,Total 0.5 mg/dL (0.2-1.3); Blood Urea Nitrogen 24 mg/dL (7-17); Calcium 9.3 mg/dL (8.4-10.2); Carbon Dioxide 24 mmol/L (22-30); Chloride 104 mmol/L (98-107); Estimated Glomerular Filt Rate 48; Glucose 164 mg/dL (65-110); Potassium 4.7 mmol/L (3.4-5.0); Sodium 139 mmol/L (137-145)
== END 2021-07-10 13:15 | disposition home or self-care (01) ==
LOC: ANHLAB 13:15
PROVIDERS: PCP Family Medicine; Visit Provider Internal Medicine Hematology & Oncology
DX: C64.2 Malignant neoplasm of left kidney, except renal pelvis (principal)
CPT/HCPCS: 36415; 80053; 85025

== ENCOUNTER 2021-10-30 09:28 | Outpatient (CLI) | payer MEDICARE, SELFPAY ==
--- NOTE | ~2021-10-30 | CT_ITS ---
EXAMINATION: CT abdomen pelvis wo con DATE: 10/30/2021 10:05 INDICATION: Malignant neoplasm of the left kidney TECHNIQUE: Computed tomography (CT) of the abdomen and pelvis was performed without intravenous contr ast. Automated exposure control and iterative reconstruction technique were employed. The dose-length product was 664.79 mGy-cm. COMPARISON: 06/26/2021 FINDINGS: Chronic paraspinal atelectasis/scarring with associated mild bronchiectatic change at the posterior m edial right lower lobe. Heart size is normal. Aortic valve calcification. No pericardial or pleural e ffusion. Left breast implant. Multiple peripherally calcified gallstones in the otherwise normal gall bladder. Liver, spleen, pancreas, right adrenal gland and kidney are normal. Left kidney and adrenal glands are not visualized consistent with resection of a reported prior left renal malignancy. A shor t segment of the colon extends into a small to moderate-sized widemouthed upper abdominal ventral her pamella. There is an additional large wide mouthed ventral hernia at the mid abdomen containing multiple loops of nonobstructed small bowel. Normal appendix. Bladder, anteverted uterus and bilateral adnexa are unremarkable. No free intraperitoneal gas or fluid. No pathologically enlarged abdominal or pelvi c lymphadenopathy.. There are bridging osteophytes at multiple levels in the lower thoracic spine, co nsistent with diffuse idiopathic skeletal hyperostosis (DISH). IMPRESSION: 1. Status post left nephrectomy and adrenalectomy reportedly for prior left renal malignancy. No evid ent residual/recurrent or metastatic disease. 2. Loops of nonobstructed bowel extending into a couple wide mouth ventral hernias. 3. Cholelithiasis. Reviewed, dictated and finalized at location B. IMPRESSION: 1. Status post left nephrectomy and adrenalectomy reportedly for prior left avani al malignancy. No evident residual/recurrent or metastatic disease. 2. Loops of nonobstructed bowel extending into a couple wide mouth ventral deja ias. 3. Cholelithiasis.
== END 2021-10-30 09:29 | disposition home or self-care (01) ==
PROVIDERS: PCP Family Medicine; Visit Provider Internal Medicine Hematology & Oncology
DX: C64.2 Malignant neoplasm of left kidney, except renal pelvis (principal); Z90.5 Acquired absence of kidney; K43.9 Ventral hernia without obstruction or gangrene; K80.20 Calculus of gallbladder without cholecystitis without obstruction
CPT/HCPCS: 74176

== ENCOUNTER 2021-11-06 09:08 | Outpatient (CLI) | payer MEDICARE, SELFPAY ==
[2021-11-06 09:29] LABS: Basophils Percent Auto 0.3 % (0.2-1.2); Eosinophils Absolute Auto 0.2 K/mm3 (0-0.3); Eosinophils Percent Auto 1.4 % (0-4.4); Hematocrit 42.9 % (37.0-47.0); Hemoglobin 13.9 g/dL (12.0-15.0); Immature Granulocyte Absolute 0.03 K/mm3 (0.00-0.031); Immature Granulocyte Percent A 0.3 % (0-0.5); Lymphocytes Absolute Auto 1.76 K/mm3 (0.9-3.2); Mean Corpuscular HGB Conc 32.4 g/dl (32-36); Mean Corpuscular Hemoglobin 29.9 pg (26-34); Mean Corpuscular Volume 92.3 fl (80-100); Mean Platelet Volume 11.2 fl (7.4-10.4); Monocytes Absolute Auto 0.6 K/mm3 (0.1-0.6); Monocytes Percent Auto 5.6 % (2.6-8.5); Neutrophils Absolute Auto 8.4 K/mm3 (1.3-6.7); Neutrophils Percent Auto 76.4 % (45.5-73.1); Platelet Count Result 173 k/mm3 (150-375); Red Blood Count 4.65 M/mm3 (4.2-5.4); Red Cell Distribution Width 11.9 % (11.5-14.5)
[2021-11-06 09:33] LABS: Blood Urea Nitrogen 24 mg/dL (8-26); Carbon Dioxide 24 mmol/L (22-30); Chloride 107 mmol/L (98-109); Estimated Glomerular Filt Rate 43; Glucose 174 mg/dL (70-105); Potassium 4.7 mmol/L (3.5-4.9); Sodium 140 mmol/L (138-146)
[2021-11-06 10:28] LABS: Alanine Aminotransferase 18 U/L (6-35); Albumin Level 4.4 g/dL (3.5-5.1); Alkaline Phosphatase 99 U/L (38-126); Anion Gap 8 mmol/L (8-16); Aspartate Amino Transferase 24 U/L (14-36); Bilirubin,Total 0.4 mg/dL (0.2-1.3); Blood Urea Nitrogen 25 mg/dL (7-17); Calcium 8.8 mg/dL (8.4-10.2); Carbon Dioxide 23 mmol/L (22-30); Chloride 108 mmol/L (98-107); Estimated Glomerular Filt Rate 43; Glucose 171 mg/dL (65-110); Potassium 4.8 mmol/L (3.4-5.0); Sodium 139 mmol/L (137-145)
== END 2021-11-06 09:09 | disposition home or self-care (01) ==
LOC: ANHLAB 09:09
PROVIDERS: PCP Family Medicine; Visit Provider Internal Medicine Hematology & Oncology
DX: C64.2 Malignant neoplasm of left kidney, except renal pelvis (principal)
CPT/HCPCS: 36415; 80047; 80053; 85025

== ENCOUNTER 2022-04-30 08:16 | Outpatient (CLI) | payer MEDICARE, SELFPAY ==
--- NOTE | ~2022-04-30 | CT_ITS ---
EXAMINATION: CT abdomen pelvis w con DATE: 04/30/2022 08:46 INDICATION: Restaging of malignant neoplasm of left kidney TECHNIQUE: Computed tomography (CT) of the abdomen and pelvis was performed with 100 CC Omnipaque 350 intravenous contrast. Automated exposure control and iterative reconstruction technique were employe d. Exam dose: 812.18 mGy-cm total exam DLP. COMPARISON: 06/24/2016 right implant mammogram 10/30/2021 CT abdomen pelvis FINDINGS: History of left mastectomy. Left breast implant. Cardiomegaly. No pericardial or pleural effusion. The lung bases are clear of infiltrate or consolida tion. Multiple gallstones are noted. Borderline gallbladder wall thickening, more prominent than on 11/17/19 22. No bile duct or pancreatic duct dilatation. No hepatic, splenic, pancreatic, adrenal or suspicious renal space-occupying mass lesion is detected. There are couple of 6 mm and smaller right renal cysts. Status post left nephrectomy. No suspicious mass is noted in the left nephrectomy bed No right urinary tract calculus or hydroureteronephrosis. The urinary bladder, uterus and adnexal are as are unremarkable. There is atherosclerotic calcification but normal caliber of the abdominal aorta. No intraperitoneal or retroperitoneal or pelvic mass lesion or adenopathy or ascites is noted. Diverticulosis of the colon; no CT evidence of diverticulitis. Normal appendix. There is an upper ventral widemouth abdominal wall hernia containing fat and the anterior wall of tra nsverse colon. Immediately caudal to this is a larger widemouth ventral abdominal wall hernia contain ing transverse colon and small bowel without strangulation or obstruction. No bowel obstruction or intraperitoneal free air. Diffuse idiopathic skeletal hyperostosis of the thoracic spine. No suspicious osteolytic or osteoblas tic lesions. IMPRESSION: Status post left nephrectomy; no abnormal mass lesion in the left nephrectomy bed or abd ominal or pelvic lymphadenopathy Cholelithiasis, borderline gallbladder wall thickening Diverticulosis of the colon Normal appendix Ventral abdominal wall hernias containing bowel, without strangulation or obstruction Reviewed, dictated and finalized at Location A. Reviewed, dictated and finalized at location B. CHUTE ACCESSORIES ATTACHER IMPRESSION: Status post left nephrectomy; no abnormal mass lesion in the left nephrectomy bed or abdominal or pelvic lymphadenopathy Cholelithiasis, borderline gallbladder wall thickening Diverticulosis of the colon Normal appendix Ventral abdominal wall hernias containing bowel, without strangulation or obstr uction
[2022-04-30 08:42] LABS: Estimated Glomerular Filt Rate 43
== END 2022-04-30 08:17 | disposition home or self-care (01) ==
PROVIDERS: PCP Family Medicine; Visit Provider Internal Medicine Hematology & Oncology
DX: C64.2 Malignant neoplasm of left kidney, except renal pelvis (principal); K57.30 Diverticulosis of large intestine without perforation or abscess without bleeding; K80.20 Calculus of gallbladder without cholecystitis without obstruction
CPT/HCPCS: 74177; Q9967

== ENCOUNTER 2022-05-07 09:29 | Outpatient (CLI) | payer MEDICARE, SELFPAY ==
[2022-05-07 09:46] LABS: Basophils Percent Auto 0.4 % (0.2-1.2); Eosinophils Absolute Auto 0.2 K/mm3 (0-0.3); Eosinophils Percent Auto 2.4 % (0-4.4); Hematocrit 40.5 % (37.0-47.0); Hemoglobin 13.1 g/dL (12.0-15.0); Immature Granulocyte Absolute 0.01 K/mm3 (0.00-0.031); Immature Granulocyte Percent A 0.1 % (0-0.5); Lymphocytes Absolute Auto 1.42 K/mm3 (0.9-3.2); Lymphocytes Percent Auto 19.8 % (18.3-44.2); Mean Corpuscular HGB Conc 32.3 g/dl (32-36); Mean Corpuscular Hemoglobin 30.4 pg (26-34); Mean Platelet Volume 11.3 fl (7.4-10.4); Monocytes Absolute Auto 0.5 K/mm3 (0.1-0.6); Monocytes Percent Auto 7.3 % (2.6-8.5); Platelet Count Result 161 k/mm3 (150-375); Red Blood Count 4.31 M/mm3 (4.2-5.4); White Blood Count 7.2 K/mm3 (4.5-10.0)
[2022-05-07 09:53] LABS: Blood Urea Nitrogen 17 mg/dL (8-26); Carbon Dioxide 23 mmol/L (22-30); Chloride 107 mmol/L (98-109); Estimated Glomerular Filt Rate 43; Glucose 175 mg/dL (70-105); Potassium 4.4 mmol/L (3.5-4.9); Sodium 142 mmol/L (138-146)
[2022-05-07 15:07] LABS: Alanine Aminotransferase 19 U/L (6-35); Albumin Level 4.2 g/dL (3.5-5.1); Alkaline Phosphatase 110 U/L (38-126); Anion Gap 8 mmol/L (8-16); Aspartate Amino Transferase 26 U/L (14-36); Bilirubin,Total 0.5 mg/dL (0.2-1.3); Blood Urea Nitrogen 16 mg/dL (7-17); Calcium 8.4 mg/dL (8.4-10.2); Carbon Dioxide 24 mmol/L (22-30); Chloride 110 mmol/L (98-107); Estimated Glomerular Filt Rate 43; Glucose 165 mg/dL (65-110); Potassium 4.4 mmol/L (3.4-5.0); Sodium 142 mmol/L (137-145)
== END 2022-05-07 09:30 | disposition home or self-care (01) ==
LOC: ANHLAB 09:30
PROVIDERS: PCP Family Medicine; Visit Provider Internal Medicine Hematology & Oncology
DX: C64.2 Malignant neoplasm of left kidney, except renal pelvis (principal)
CPT/HCPCS: 36415; 80047; 80053; 85025

== ENCOUNTER 2022-08-10 18:14 | Outpatient (CLI) | payer MEDICARE, SELFPAY ==
--- NOTE | ~2022-08-10 | XR_ITS ---
Clinical Indication: Diabetes, prior mastectomy PA and lateral views of the chest: Comparison: 08/27/2018 Findings: The lungs are clear, without evidence of focal consolidation or pleural effusion. Cardiome diastinal silhouette is within normal limits. Left mastectomy noted. Osseous structures intact. Impression: Clear lungs. Reviewed, dictated and finalized at location . Impression: Clear lungs.
== END 2022-08-10 18:15 | disposition home or self-care (01) ==
PROVIDERS: PCP Family Medicine; Visit Provider Nurse Practitioner Family
DX: R05.9 Cough, unspecified (principal)
CPT/HCPCS: 71046

== ENCOUNTER 2022-11-25 08:09 | Outpatient (CLI) | payer MEDICARE, SELFPAY ==
--- NOTE | ~2022-11-25 | CT_ITS ---
CT of the Abdomen and Pelvis: Indication: Renal cancer Technique: 2.5 mm axial scans were obtained through the abdomen and pelvis following intravenous adm inistration of 100 cc of Omnipaque 350. Dose reduction technique was used on this scan by utilizing a utomated exposure control and iterative reconstruction technique. The dose-length product (DLP) was 9 90.92 mGy-cm. COMPARISON: 04/30/2022 Findings: Scans through the lung bases are unremarkable. The liver, spleen, pancreas, adrenals and right kidney are within normal limits. Calcified gallstones are present. Patient is status post left nephrectomy. No evidence of aortic aneurysm. No lymphadeno tiffany. There are 2 adjacent ventral hernias, both containing multiple small bowel loops. No bowel wall thick ening or obstruction evident. There is an additional more superior fat-containing ventral hernia. Images through the pelvis were performed. Urinary bladder unremarkable. No adnexal mass seen. No asci shruthi. Impression: No evidence of active malignancy or metastatic disease. Status post left nephrectomy. 2 ventral hernias, both containing multiple small bowel loops. No bowel wall thickening or obstructio n. Third more superior fat-containing ventral hernia. Cholelithiasis. Reviewed, dictated and finalized at location . Impression: No evidence of active malignancy or metastatic disease. Status post left nephre ctomy. 2 ventral hernias, both containing multiple small bowel loops. No bowel wall th ickening or obstruction. Third more superior fat-containing ventral hernia. Cholelithiasis.
[2022-11-25 08:39] LABS: Estimated Glomerular Filt Rate 31
== END 2022-11-25 08:10 | disposition home or self-care (01) ==
PROVIDERS: PCP Family Medicine; Visit Provider Internal Medicine Hematology & Oncology
DX: C64.2 Malignant neoplasm of left kidney, except renal pelvis (principal); K43.9 Ventral hernia without obstruction or gangrene; K80.20 Calculus of gallbladder without cholecystitis without obstruction
CPT/HCPCS: 74177; Q9967

== ENCOUNTER 2022-12-02 09:20 | Outpatient (CLI) | payer MEDICARE, SELFPAY ==
[2022-12-02 09:33] LABS: Basophils Absolute Auto 0.1 K/mm3 (0.0-0.1); Basophils Percent Auto 0.9 % (0.2-1.2); Eosinophils Absolute Auto 0.2 K/mm3 (0-0.3); Eosinophils Percent Auto 3.2 % (0-4.4); Hematocrit 39.5 % (37.0-47.0); Hemoglobin 12.9 g/dL (12.0-15.0); Immature Granulocyte Absolute 0.02 K/mm3 (0.00-0.031); Immature Granulocyte Percent A 0.3 % (0-0.5); Lymphocytes Absolute Auto 1.82 K/mm3 (0.9-3.2); Lymphocytes Percent Auto 27.7 % (18.3-44.2); Mean Corpuscular HGB Conc 32.7 g/dl (32-36); Mean Corpuscular Hemoglobin 29.3 pg (26-34); Mean Corpuscular Volume 89.8 fl (80-100); Mean Platelet Volume 11.2 fl (7.4-10.4); Monocytes Absolute Auto 0.5 K/mm3 (0.1-0.6); Monocytes Percent Auto 7.3 % (2.6-8.5); Neutrophils Percent Auto 60.6 % (45.5-73.1); Platelet Count Result 170 k/mm3 (150-375); Red Cell Distribution Width 12.3 % (11.5-14.5); White Blood Count 6.6 K/mm3 (4.5-10.0)
[2022-12-02 09:39] LABS: Blood Urea Nitrogen 23 mg/dL (8-26); Carbon Dioxide 27 mmol/L (22-30); Chloride 105 mmol/L (98-109); Estimated Glomerular Filt Rate 43; Glucose 144 mg/dL (70-105); Ionized Calcium (POC) 1.19 mmol/L (1.11-1.31); Potassium 4.6 mmol/L (3.5-4.9); Sodium 142 mmol/L (138-146)
[2022-12-02 12:16] LABS: Alanine Aminotransferase 22 U/L (6-35); Albumin Level 4.2 g/dL (3.5-5.1); Alkaline Phosphatase 110 U/L (38-126); Anion Gap 6 mmol/L (8-16); Aspartate Amino Transferase 30 U/L (14-36); Bilirubin,Total 0.6 mg/dL (0.2-1.3); Blood Urea Nitrogen 23 mg/dL (7-17); Calcium 8.9 mg/dL (8.4-10.2); Carbon Dioxide 28 mmol/L (22-30); Chloride 106 mmol/L (98-107); Estimated Glomerular Filt Rate 53; Glucose 140 mg/dL (65-110); Potassium 4.7 mmol/L (3.4-5.0); Sodium 140 mmol/L (137-145)
== END 2022-12-02 09:21 | disposition home or self-care (01) ==
LOC: ANHLAB 09:21
PROVIDERS: PCP Family Medicine; Visit Provider Internal Medicine Hematology & Oncology
DX: C64.2 Malignant neoplasm of left kidney, except renal pelvis (principal)
CPT/HCPCS: 36415; 80047; 80053; 85025

== ENCOUNTER 2023-03-31 14:37 | Outpatient (CLI) | payer MEDICARE, SELFPAY ==
--- NOTE | 2023-03-31 14:54 | ECHO_ITS ---
Patient Info Name: Mabel Lance Age: 77 years : 1945 Gender: Female Ht: 66 in Wt: 165 lbs BSA: 1.88 m2 HR: 112 bpm BP: 141 / 93 mmHg Heart Rhythm: Sinus Rhythm Technical Quality: Poor Exam Date: 03/31/2023 3:09 PM Exam Location: Echo Lab Patient Status: Outpatient Admit Date: 03/31/2023 Staff Ordering Physician: Kat Rodriguez Area Counselor: Shonna Jimenez RDCS Attending Provider: Kat Rodriguez Referring Physician: Michael BEDOYA; Exam Type: CA echo doppler color flow Study Info Indications - sob Complete two-dimensional, color flow and Doppler transthoracic echocardiogram is performed. Reason for Poor Study: poor echocardiographic windows Summary 1. Complete two-dimensional, color flow and Doppler transthoracic echocardiogram is performed. 2. Left ventricular chamber dimension is normal. 3. Left ventricular systolic function is normal, estimated at 65-70%. 4. There is mildly increased left ventricular wall thickness. 5. The left ventricular diastolic function is normal. 6. The aortic root size at the sinus of Valsalva is mildly dilated. 7. Technically difficult study with poor visualization of the endocardium and valves due to poor echocardiographic windows. Left Ventricle Left ventricular chamber dimension is normal. Left ventricular systolic function is normal, estimated at 65-70%. There is mildly increased left ventricular wall thickness. The left ventricular diastolic function is normal. Right Ventricle Right ventricular chamber dimension is normal. Right ventricular systolic function is normal. Left Atria Left atrial chamber dimension is normal. Right Atria Right atrial chamber dimension is normal. Atrial Septum Intact interatrial septum visualized by color flow imaging. Aortic Valve The aortic valve is not well visualized. There is no aortic valve stenosis. There is trace aortic valve regurgitation. Pulmonic Valve The pulmonic valve is not well visualized. There is no pulmonic valve stenosis. There is trace pulmonic regurgitation. Mitral Valve The mitral valve has normal leaflets. There is no mitral valve stenosis. There is trace mitral valve regurgitation. Tricuspid Valve The tricuspid valve leaflets are normal. There is no significant tricuspid valve stenosis. There is trace tricuspid valve regurgitation. No pulmonary hypertension, estimated pulmonary arterial systolic pressure is 15 mmHg. Other Findings Technically difficult study with poor visualization of the endocardium and valves due to poor echocardiographic windows. Pericardium/Pleural The pericardium appears thickened pericardium. There is small pericardial effusion. Inferior Vena Cava Normal inferior vena cava with >50% collapse upon inspiration consistent with normal right atrial pressure, 10 mmHg. Aorta The aortic root size at the sinus of Valsalva is mildly dilated. Left Ventricular Outflow Tract Name Value Normal LVOT Doppler LVOT Peak Gradient 1 mmHg LVOT Mean Gradient 1 mmHg LVOT VTI 12 cm LVOT VTI/AV VTI Ratio 0.7 Pulmonic Valve Name Value
== END 2023-03-31 14:38 | disposition home or self-care (01) ==
PROVIDERS: PCP Family Medicine; Visit Provider Nurse Practitioner Family
DX: R06.02 Shortness of breath (principal)
CPT/HCPCS: 93306

== ENCOUNTER 2023-06-06 08:32 | Outpatient (CLI) | payer MEDICARE, SELFPAY ==
--- NOTE | ~2023-06-06 | CT_ITS ---
CT of the Abdomen and Pelvis: Indication: Left renal cancer Technique: 2.5 mm axial scans were obtained through the abdomen and pelvis following intravenous adm inistration of 100 cc of Omnipaque 350. Dose reduction technique was used on this scan by utilizing a utomated exposure control and iterative reconstruction technique. The dose-length product (DLP) was 9 07.32 mGy-cm. COMPARISON: 11/25/2022 Findings: Scans through the lung bases are unremarkable. The liver, spleen, pancreas, adrenals and right kidney are within normal limits. Gallbladder is diste nded with large gallstones present. Patient is status post left nephrectomy. No evidence of aortic an eurysm. No lymphadenopathy. There is a large, wide necked ventral/umbilical hernia containing multiple small bowel loops. No lily l wall thickening or bowel obstruction. Additional upper ventral fat-containing hernia. Images through the pelvis were performed. Urinary bladder unremarkable. No pelvic mass seen. No ascit es. Impression: Status post left nephrectomy. No evidence for active malignancy or metastatic disease. Large, [place] ventral/umbilical hernia containing multiple small bowel loops. No bowel obstruction or bowel wall thickening. Cholelithiasis. Reviewed, dictated and finalized at [facility]. IVING INSPECTOR Impression: Status post left nephrectomy. No evidence for active malignancy or metastatic d isease. Large, [place] ventral/umbilical hernia containing multiple small bowel loops . No bowel obstruction or bowel wall thickening. Cholelithiasis.
[2023-06-06 08:58] LABS: Estimated Glomerular Filt Rate 36
== END 2023-06-06 08:33 | disposition home or self-care (01) ==
PROVIDERS: PCP Family Medicine; Visit Provider Internal Medicine Hematology & Oncology
DX: C64.2 Malignant neoplasm of left kidney, except renal pelvis (principal); K43.9 Ventral hernia without obstruction or gangrene; K42.9 Umbilical hernia without obstruction or gangrene; K80.20 Calculus of gallbladder without cholecystitis without obstruction; Z90.5 Acquired absence of kidney
CPT/HCPCS: 74177; Q9967

== ENCOUNTER 2023-06-13 09:36 | Outpatient (CLI) | payer MEDICARE, SELFPAY ==
[2023-06-13 09:56] LABS: Basophils Absolute Auto 0.1 K/mm3 (0.0-0.1); Basophils Percent Auto 1.2 % (0.2-1.2); Eosinophils Absolute Auto 0.3 K/mm3 (0-0.3); Eosinophils Percent Auto 3.8 % (0-4.4); Hematocrit 39.3 % (37.0-47.0); Hemoglobin 13.4 g/dL (12.0-15.0); Immature Granulocyte Absolute 0.03 K/mm3 (0.00-0.031); Immature Granulocyte Percent A 0.4 % (0-0.5); Lymphocytes Absolute Auto 1.86 K/mm3 (0.9-3.2); Lymphocytes Percent Auto 24.2 % (18.3-44.2); Mean Corpuscular HGB Conc 34.1 g/dl (32-36); Mean Corpuscular Hemoglobin 30.2 pg (26-34); Mean Corpuscular Volume 88.7 fl (80-100); Mean Platelet Volume 11.3 fl (7.4-10.4); Monocytes Absolute Auto 0.6 K/mm3 (0.1-0.6); Monocytes Percent Auto 7.1 % (2.6-8.5); Neutrophils Absolute Auto 4.9 K/mm3 (1.3-6.7); Neutrophils Percent Auto 63.3 % (45.5-73.1); Platelet Count Result 189 k/mm3 (150-375); Red Blood Count 4.43 M/mm3 (4.2-5.4); Red Cell Distribution Width 11.7 % (11.5-14.5); White Blood Count 7.7 K/mm3 (4.5-10.0)
[2023-06-13 10:02] LABS: Blood Urea Nitrogen 27 mg/dL (8-26); Carbon Dioxide 23 mmol/L (22-30); Chloride 104 mmol/L (98-109); Estimated Glomerular Filt Rate 39; Glucose 194 mg/dL (70-105); Ionized Calcium (POC) 1.12 mmol/L (1.11-1.31); Potassium 4.8 mmol/L (3.5-4.9); Sodium 139 mmol/L (138-146)
[2023-06-13 11:02] LABS: Alanine Aminotransferase 16 U/L (6-35); Albumin Level 4.3 g/dL (3.5-5.1); Alkaline Phosphatase 127 U/L (38-126); Anion Gap 11 mmol/L (8-16); Aspartate Amino Transferase 23 U/L (14-36); Bilirubin,Total 0.5 mg/dL (0.2-1.3); Blood Urea Nitrogen 25 mg/dL (7-17); Calcium 9.1 mg/dL (8.4-10.2); Carbon Dioxide 22 mmol/L (22-30); Chloride 104 mmol/L (98-107); Estimated Glomerular Filt Rate 39; Glucose 190 mg/dL (65-110); Potassium 4.8 mmol/L (3.4-5.0); Sodium 137 mmol/L (137-145)
== END 2023-06-13 09:37 | disposition home or self-care (01) ==
LOC: ANHLAB 09:43
PROVIDERS: Visit Provider Internal Medicine Hematology & Oncology
DX: C64.2 Malignant neoplasm of left kidney, except renal pelvis (principal)
CPT/HCPCS: 36415; 80047; 80053; 85025

== ENCOUNTER 2023-08-05 07:39 | Outpatient (CLI) | payer MEDICARE, SELFPAY ==
--- NOTE | ~2023-08-05 | US_ITS ---
Abdominal Sonogram: Real-time sonographic imaging of the abdomen was performed. Clinical History: Abdominal pain Findings: The liver appears mildly echogenic, with no evidence of mass lesion or bile duct dilatatio n. Main portal vein demonstrates normal direction of flow. The spleen is normal in size without evide nce of focal lesion. The gallbladder is well distended, and and contains echogenic gallstones. No ga llbladder wall thickening. The common bile duct measures 5 mm. The visualized pancreas, aorta, and I VC are unremarkable. The right kidney measures 12.0 cm in length, without hydronephrosis. Status pos t left nephrectomy. There is probable hernia at the umbilicus region, with bowel protruding during co ughing. Impression: Probable umbilical hernia containing bowel loops, especially noticeable during coughing. Cholelithiasis. Status post left nephrectomy. Reviewed, dictated and finalized at [facility]. CAL LAB DIRECTOR Impression: Probable umbilical hernia containing bowel loops, especially noticeable during coughing. Cholelithiasis. Status post left nephrectomy.
== END 2023-08-05 07:40 | disposition home or self-care (01) ==
PROVIDERS: PCP Family Medicine; Visit Provider Nurse Practitioner Family
DX: K80.20 Calculus of gallbladder without cholecystitis without obstruction (principal); Z90.5 Acquired absence of kidney
CPT/HCPCS: 76700

== ENCOUNTER 2023-11-02 10:52 | Outpatient (CLI) | payer MEDICARE, SELFPAY ==
--- NOTE | 2023-11-02 11:11 | ECG_ITS ---
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 Measurements Intervals [place] Rate: 99 P: 44 RI: 242 QRS: 51 QRSD: 101 T: 40 QT: 344 QTc: 443 Interpretive Statements SINUS RHYTHM WITH FIRST DEGREE AV BLOCK WITH OCCASIONAL VENTRICULAR PREMATURE COMPLEXES No previous ECG available for comparison Electronically Signed On 11-02-2023 14:15:04 CDT by Claudia Lynch M.D.
== END 2023-11-02 10:53 | disposition home or self-care (01) ==
LOC: ANHCARD 10:55
PROVIDERS: PCP Family Medicine; Visit Provider Nurse Practitioner Family
DX: I44.0 Atrioventricular block, first degree (principal); I49.3 Ventricular premature depolarization
CPT/HCPCS: 93005

== ENCOUNTER 2024-01-09 08:26 | Outpatient (CLI) | payer MEDICARE, SELFPAY ==
--- NOTE | ~2024-01-09 | NM_ITS ---
EXAMINATION: NM aguila stress w perfusion DATE: 01/09/2024 10:22 INDICATION: Other forms of dyspnea. TECHNIQUE: Rest images were obtained following intravenous administration of 9.5 mCi Tc99m tetrofosmi n (Myoview). The patient was infused intravenously with Lexiscan (regadenoson). Then, 29 mCi Tc99m te trofosmin (Myoview) was administered intravenously, and stress images were obtained. Data was reconst ructed into short axis and horizontal and vertical long axis SPECT images. Gated SPECT images were al so obtained. COMPARISON: Myocardial perfusion imaging 05/04/13 FINDINGS: There is no definite reversible or fixed perfusion abnormality to suggest ischemia or infar ction. There is no segmental wall motion abnormality. Left ventricular ejection fraction measures 6 9%. IMPRESSION: 1. No definite ischemia or infarct. 2. Normal left ventricular ejection fraction measuring 69%. Reviewed, dictated and finalized at location A.
--- NOTE | 2024-01-09 08:45 | EST_ITS ---
Patient Info Name: Mabel Lance Age: 78 years : 1945 Gender: Female Ht: 66 in Wt: 180 lbs BSA: 1.97 m2 Exam Date: 01/09/2024 9:47 AM Exam Location: Echo Lab Patient Status: Outpatient Admit Date: 01/09/2024 Staff Ordering Physician: Garrett Murguia DO Attending Provider: Garrett Murguia DO Exercise Technologist: Ana Woo CT Exercise Physician: Garrett Murguia DO Exam Type: CA stress aguila w NM Study Info Indications R06.09 - Other forms of dyspnea A regadenoson stress test was performed. Summary 1. 1. Negative lexiscan stress test for ischemic ST changes by ECG criteria. 2. 2. Stable hemodynamics throughout the test. 3. 3. Nuclear scan to follow and will be reported separately. Please correlate with it. 4. 4. Patient informed of the above results. Protocol: Lexiscan Stress ECG Details Stage: REST Duration (min): 2 min : 6 sec HR (bpm): 74 SBP (mmHg): 130 DBP (mmHg): 77 Stage: REST Duration (min): 13 min : 47 sec HR (bpm): 81 SBP (mmHg): 130 DBP (mmHg): 77 Stage: STAGE 1 Duration (min): 0 min : 59 sec HR (bpm): 93 SBP (mmHg): 148 DBP (mmHg): 62 Stage: RECOVERY Duration (min): 1 min : 0 sec HR (bpm): 100 SBP (mmHg): 148 DBP (mmHg): 62 Stage: RECOVERY Duration (min): 2 min : 0 sec HR (bpm): 80 SBP (mmHg): 148 DBP (mmHg): 62 Stage: RECOVERY Duration (min): 3 min : 0 sec HR (bpm): 106 SBP (mmHg): 177 DBP (mmHg): 74 Stage: RECOVERY Duration (min): 3 min : 42 sec HR (bpm): 96 SBP (mmHg): 177 DBP (mmHg): 74 Rest HR: 81 bpm Peak HR: 107 bpm Rest Sys BP: 130 mmHg Peak Sys BP: 177 mmHg Max Pred HR: 140 bpm % Max Pred HR: 76 % Target HR: 119 bpm Max RPP: 18,939 bpm*mmHg Termination Reason: Completed protocol Cardiac Symptoms: Shortness of breath Total Time: 1 min : 0 sec Rest Narvaez BP: 77 mmHg Peak Narvaez BP: 74 mmHg Total Dose: 0.4 mg Resting ECG Sinus rhythm. Stress ECG No ST changes. Arrhythmias None. Report Signatures
== END 2024-01-09 08:27 | disposition home or self-care (01) ==
PROVIDERS: PCP Family Medicine; Visit Provider Internal Medicine Cardiovascular Disease
DX: R06.09 Other forms of dyspnea (principal)
CPT/HCPCS: 78452; 93017; A9502; J2785

== ENCOUNTER 2024-02-14 08:37 | Outpatient (CLI) | payer MEDICARE, SELFPAY ==
--- NOTE | ~2024-02-14 | CT_ITS ---
EXAMINATION: CT abdomen pelvis w con DATE: 02/14/2024 09:25 INDICATION: Malignant neoplasm of the left kidney TECHNIQUE: Computed tomography (CT) of the abdomen and pelvis was performed with 100 mL Omnipaque-350 intravenous contrast. Automated exposure control and iterative reconstruction technique were employe d. The dose-length product was 829.80 mGy-cm. COMPARISON: 06/06/2023, 04/30/2022 and 02/01/2020 FINDINGS: Partially visualized unilateral left breast implant. Mild atelectasis/scarring at the bilateral lung bases. Heart size is normal. Small amount of atherosclerotic coronary artery calcific lesion. Aortic valve and mitral annular calcification. No pericardial or pleural effusion. Calcified gallstones in t he otherwise normal-appearing gallbladder. 7 mm enhancing nodule at the uncinate process of the pancr eas initially identified on CT dated 02/01/2020 which has decreased in size since 06/06/2023 at which lydia e it measured 11 mm and 1.4 cm on study dated 04/30/2022. Liver, spleen and right adrenal gland are no rmal. Status post left adrenalectomy and nephrectomy. A few small regions of cortical scarring at the right kidney likely sequela prior infection or infarction. Large midline ventral hernia containing f at and nonobstructed loops of small bowel and segment of the transverse colon. There are few scattere d diverticula without adjacent comparison to suggest diverticulitis. Normal appendix. Bladder, anteve rted uterus and bilateral adnexa are unremarkable. No free intraperitoneal gas or fluid. No pathologi swati enlarged abdominal or pelvic lymphadenopathy. Chronic mild T8 compression fracture. IMPRESSION: 1. Cholelithiasis. 2. Large wide mouthed ventral hernia containing multiple loops of nonobstructed bowel. 3. Decrease in size suggesting response to treatment of a now 7 mm enhancing nodule at the uncinate p rocess of the pancreas as described on CT dated 02/01/2020 suspicious for metastatic disease, likely re nal cell carcinoma given the prior left nephrectomy and adrenalectomy reportedly for renal cell carci noma. Reviewed, dictated and finalized at location B. IMPRESSION: 1. Cholelithiasis. 2. Large wide mouthed ventral hernia containing multiple loops of nonobstructed bowel. 3. Decrease in size suggesting response to treatment of a now 7 mm enhancing no dule at the uncinate process of the pancreas as described on CT dated 02/01/2020 suspicious for metastatic disease, likely renal cell carcinoma given the prior left nephrectomy and adrenalectomy reportedly for renal cell carcinoma.
[2024-02-14 09:15] LABS: Estimated Glomerular Filt Rate 39
== END 2024-02-14 08:38 | disposition home or self-care (01) ==
PROVIDERS: PCP Family Medicine; Visit Provider Internal Medicine Hematology & Oncology
DX: C64.2 Malignant neoplasm of left kidney, except renal pelvis (principal); K80.20 Calculus of gallbladder without cholecystitis without obstruction; K43.9 Ventral hernia without obstruction or gangrene; Z90.5 Acquired absence of kidney; E89.6 Postprocedural adrenocortical (-medullary) hypofunction
CPT/HCPCS: 74177; Q9967

== ENCOUNTER 2024-02-24 12:51 | Outpatient (CLI) | payer MEDICARE, SELFPAY ==
[2024-02-24 13:04] LABS: Basophils Absolute Auto 0.1 K/mm3 (0.0-0.1); Basophils Percent Auto 0.7 % (0.2-1.2); Eosinophils Absolute Auto 0.3 K/mm3 (0-0.3); Eosinophils Percent Auto 3.3 % (0-4.4); Hematocrit 37.6 % (37.0-47.0); Hemoglobin 12.5 g/dL (12.0-15.0); Immature Granulocyte Absolute 0.03 K/mm3 (0.00-0.031); Immature Granulocyte Percent A 0.4 % (0-0.5); Lymphocytes Percent Auto 27.1 % (18.3-44.2); Mean Corpuscular HGB Conc 33.2 g/dl (32-36); Mean Corpuscular Hemoglobin 30.7 pg (26-34); Mean Corpuscular Volume 92.4 fl (80-100); Mean Platelet Volume 11.2 fl (7.4-10.4); Monocytes Absolute Auto 0.4 K/mm3 (0.1-0.6); Monocytes Percent Auto 5.3 % (2.6-8.5); Neutrophils Absolute Auto 5.1 K/mm3 (1.3-6.7); Neutrophils Percent Auto 63.2 % (45.5-73.1); Platelet Count Result 189 k/mm3 (150-375); Red Blood Count 4.07 M/mm3 (4.2-5.4); Red Cell Distribution Width 11.9 % (11.5-14.5); White Blood Count 8.1 K/mm3 (4.5-10.0)
[2024-02-24 13:08] LABS: Blood Urea Nitrogen 28 mg/dL (8-26); Carbon Dioxide 23 mmol/L (22-30); Chloride 107 mmol/L (98-109); Estimated Glomerular Filt Rate 39; Glucose 252 mg/dL (70-105); Ionized Calcium (POC) 1.14 mmol/L (1.11-1.31); Potassium 4.9 mmol/L (3.5-4.9); Sodium 140 mmol/L (138-146)
[2024-02-24 15:50] LABS: Alanine Aminotransferase 16 U/L (6-35); Albumin Level 4.4 g/dL (3.5-5.1); Alkaline Phosphatase 130 U/L (38-126); Anion Gap 13 mmol/L (4-12); Aspartate Amino Transferase 25 U/L (14-36); Bilirubin,Total 0.4 mg/dL (0.2-1.3); Blood Urea Nitrogen 30 mg/dL (7-17); Calcium 8.6 mg/dL (8.4-10.2); Carbon Dioxide 23 mmol/L (22-30); Chloride 105 mmol/L (98-107); Estimated Glomerular Filt Rate 43; Glucose 242 mg/dL (65-110); Sodium 141 mmol/L (137-145)
== END 2024-02-24 12:52 | disposition home or self-care (01) ==
LOC: ANHLAB 12:52
PROVIDERS: PCP Family Medicine; Visit Provider Internal Medicine Hematology & Oncology
DX: C64.2 Malignant neoplasm of left kidney, except renal pelvis (principal)
CPT/HCPCS: 36415; 80047; 80053; 85025

== ENCOUNTER 2025-02-06 11:10 | Outpatient (CLI) | payer MEDICARE, SELFPAY ==
[2025-02-06 11:50] LABS: Hematocrit 43.4 % (37.0-47.0); Hemoglobin 13.6 g/dL (12.0-15.0); Mean Corpuscular HGB Conc 31.3 g/dl (32-36); Mean Corpuscular Hemoglobin 28.8 pg (26-34); Mean Corpuscular Volume 91.8 fl (80-100); Platelet Count Result 174 k/mm3 (150-375); Red Blood Count 4.73 M/mm3 (4.2-5.4); White Blood Count 8.4 K/mm3 (4.5-10.0)
[2025-02-06 11:58] LABS: Albumin Level 4.2 g/dL (3.5-5.1); Anion Gap 11 mmol/L (4-12); Blood Urea Nitrogen 30 mg/dL (7-17); Calcium 8.8 mg/dL (8.4-10.2); Carbon Dioxide 22 mmol/L (22-30); Chloride 107 mmol/L (98-107); Estimated Glomerular Filt Rate 36; Glucose 155 mg/dL (65-110); Potassium 4.8 mmol/L (3.4-5.0); Sodium 140 mmol/L (137-145)
[2025-02-06 11:59] LABS: Total Protein Urine Random 81 mg/dL; Ur Ttl Prot Creatinine Ratio 0.81 mg/mg (0-0.20)
[2025-02-06 12:01] LABS: Add Urine Microscopic? YES; Appearance Urine Cloudy (Clear); Glucose Urine UA 3+ mg/dL (Negative); Leukocyte Esterase Ur 2+ LEU/UL (Negative); Nitrate Urine Negative (Negative); Non Pathogenic Casts 0-2; Specific Grav Ur 1.028 (1.001-1.035)
--- OUTSIDE RECORDS SUMMARY | 2025-02-06 12:07 | XMS_ITS | Encounter Summary ---
Author Organization [facility] Healthcare Address [address] [place] [address] Care Team Providers Care College Tutor Name Role Phone Roger Ferreira MD Primary Care Provide r Diaz Durant MD Primary Care Provider [phone] Encounter Details Date Type Department Care Team (Late st Contact Info) Description 01/17/2018 Orders Only [facility] [place] Information Management [address] [place] [id number] Scanning, Provider Social History Tobacco Use Types Packs/Day Years Used Date Smoking Tobacco: Never Assessed Comments Unknown Sex and Gender Information Value Date Recorded Sex Assigned at Not on file Legal Sex Female 12:26 AM SENIOR DIRECTOR CREATIVE SERVICES Gender Identity Not on file Sexual Orientation Not on file documented as of this encounter Plan of Treatment Not on file documented as of this encounter Procedures Procedure Name Priority Date/Time Associated Diagnosis Comments CARDIOLOGY DOCUMENT SCAN 01/17/2018 documented in this encounter Results * Cardiology Document Scan (01/17/2018) Anatomical Region Laterality Modality Other us Provider Scanning CV CARDIAC SERVICES PROCEDURES Final Result documented in this encounter Visit Diagnoses Not on filedocumented in this encounter Care Teams College Tutor Relationship Specialty Start Date End Date Roger Ferreira MD [address] [place] [address] PCP - General Emergency Medicine 12/28/17 02/21/18 Diaz Durant MD [address] [place] [address] PCP - General Family Medicine 02/22/18 documented as of this encounter
--- OUTSIDE RECORDS SUMMARY | 2025-02-06 12:07 | XMS_ITS | Clinical Summary ---
Author Organization [facility] Address [address] [place] [address] Care Team Providers Care Supervisor Winter Name Role Phone Diaz Durant MD Primary Care Provider [phone] Allergies Active Allergy Reactions Criticality Noted Date Comments Hymenoptera Allergenic Extract Anaphylaxis High 10/2017 Medications atorvastatin (LIPITOR) 80 mg tablet TK 1 T PO QD 0 8 Active donepezil (ARICEPT) 10 mg tablet TK 1 T PO QPM 0 8 Active aspirin (ECOTRIN EC) 81 mg Tablet, Delayed Release (E.C.) Take 81 mg by mouth daily. Active cholecalciferol , vitamin D3, 1,000 unit Take 1,000 Units by mouth daily. Active insulin glargine (LANTUS) 100 unit/mL injection Inject 10 Units by subcutaneous injection daily at bedtime. Active cyanocobalamin (VITAMIN B-12) 500 mcg tabletIndicatio ns:Renal cell carcinoma of right kidney (CMS/HCC),Chron ic anemia Take 1 Tablet (500 mcg) by mouth daily. 30 Tablet 3 9 Active acetaminophen (TYLENOL ARTHRITIS ORAL) Take by mouth. Active loratadine (CLARITIN ORAL) Take by mouth. Active OneTouch Ultra Blue Test Strip Strip 0 Active OneTouch SureSoft Lancing Dev 21 gauge 0 Active dapagliflozin (Farxiga) 10 mg Tablet Take 10 mg by mouth daily. 2 Active DULoxetine (CYMBALTA) 30 mg Capsule, Delayed Release(E.C.) Take 30 mg by mouth daily. Active Myrbetriq 25 mg Extended Release 24 hour tablet Take 25 mg by mouth daily. 4 Active Active Problems Problem Noted Date Diagnosed Date Chronic anemia 05/01/2019 Renal cell carcinoma of right kidney 01/20/2018 Encounters Date Type Department Care Team Description 02/06/2025 Orders Only [facility] Oncology and Hematology - [facility] Shasta [place] [address] [place] [phone] Pancho Fleming MD 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 (CMS/HCC) (Primary Dx) 01/15/2025 External Device Data STL ABSTRACTION Provider, Abstract 01/01/2025 External Device Data STL ABSTRACTION Provider, Abstract 12/12/2024 External Device Data STL ABSTRACTION Provider, Abstract 12/11/2024 External Device Data STL ABSTRACTION Provider, Abstract 11/20/2024 External Device Data STL ABSTRACTION Provider, Abstract from Last 3 Months Family History Medical History Relation Name Comments Lung Cancer Father Healthy Sister Relation Name Status Comments Father Mother Sister Alive Social History Tobacco Use Types Packs/Day Years Used Date Smoking Tobacco: Former Cigarettes 0.3 25 0 02/02/1963 - 02/03/1988 Smokeless Tobacco: Never Alcohol Use Standard Drinks/Week Comments No 0 (1 standard drink = 0.6 oz pur e alcohol) Comments No Sex and Gender Information Value Date Recorded Sex Assigned at Not on file Legal Sex Female 9:11 AM CDT Gender Identity Not on file Sexual Orientation Not on file Last Filed Vital Signs Vital Sign Reading Time Taken Comments Blood Pressure 140/76 02/24/2024 1:11 PM CDT Pulse 96 02/24/2024 1:06 PM CDT Temperature 36.4 C (97.5 F) 02/24/2024 1:06 PM CDT Respiratory Rate 16 02/24/2024 1:06 PM CDT Oxygen Saturation 93% 02/24/2024 1:06 PM CDT Inhaled Oxygen Concentration - - Weight 90.9 kg (200 lb 6.4 oz) 02/24/2024 1:06 P M CDT Height 167.6 cm (5' 6) 12/02/2022 9:36 AM CDT Body Mass Index 32.35 12/02/2022 9:36 AM CDT Plan of Treatment Upcoming Encounters Date Type Department Care Team (Late st Contact Info) Description 03/05/2025 10:00 AM CDT Office Visit [facility] Oncology and Hematology - Brian [address] [place] [address] Pancho Fleming MD [address] [facility] [address] [place] [address] Health Maintenance Due Date Last Done Comments DTAP/TDAP/TD VACCINES (1 - Tdap) 1962 PNEUMOCOCCAL VACCINE 50+ YEARS (1 of 1 - PCV) 04/09/19 93 ZOSTER VACCINE (1 of 2) 1993 OSTEOPOROSIS SCREENING 2008 RSV VACCINE (60+ or ) (1 - 1-dose 75+ series) 2018 Medicare Advantage ([place]) Prev entative Visit/Annual Wellness Visit 05/30/2024 INFLUENZA VACCINE (#1) 2024 Insurance [facility] Care Teams Supervisor Winter Relationship Specialty Start Date End Date Diaz Durant MD [address] [place] [address] PCP - General Family Practice 08/29/18
--- OUTSIDE RECORDS SUMMARY | 2025-02-06 12:08 | XMS_ITS | Clinical Summary ---
Author Organization [facility] [address] Address [address] [place] [address] Care Team Providers Care Reverberatory Furnace Supervisor Name Role Phone Diaz Durant MD Primary Care Provider Allergies Active Allergy Reactions Criticality Noted Date Comments Venom-Honey Bee Anaphylaxis High 02/22/2018 Hymenoptera Allergenic Extract Anaphylaxis High 10/2017 Wasp Venom Anaphylaxis High 02/22/2018 Medications donepezil (ARICEPT) 10 mg tablet TK 1 T PO QPM 0 8 Active atorvastatin (LIPITOR) 80 mg tablet TK 1 T PO QD, takes in the am 0 8 Active tolterodine LA (DETROL LA) 4 mg 24 hr capsule Take 1 capsule (4 mg total) by mouth nightly 8 Active aspirin 81 mg tabletIndication s:primary prevention Take 1 tablet (81 mg total) by mouth early interventionist before breakfast Active insulin glargine (LANTUS) 100 unit/mL injection Inject 12 Units under the skin nightly Active fluticasone (FLONASE) 50 mcg/actuation nasal spray Administer 1 spray into each nostril daily Active acetaminophen (TYLENOL) 325 mg tablet Take 2 tablets (650 mg total) by mouth every 6 (six) hours as needed for pain Active loratadine (CLARITIN) 10 mg tablet Take 1 tablet (10 mg total) by mouth daily Active esomeprazole DR (NexIUM) 40 mg capsule Take 1 capsule (40 mg total) by mouth daily 2 Active Vitamin D2 1,250 mcg (50,000 unit) capsule Take 1 capsule (50,000 Units total) by mouth once a week [address] (CYMBALTA) 30 mg capsule Take 1 capsule (30 mg total) by mouth daily Active losartan (COZAAR) 25 mg tablet TAKE 1 TABLET (25 MG TOTAL) BY MOUTH DAILY 90 tablet 3 4 Active dapagliflozin propanediol (FARXIGA) 10 mg tablet Take 1 tablet (10 mg total) by mouth daily 2 Active OneTouch Ultra Test strip 4 Active OneTouch Ultra2 Meter misc 4 Active Easy Touch Safety Lancets 30 gauge misc 4 Active BD AutoShield Duo Pen Needle 30 gauge x 3/16 needle 4 Active Myrbetriq 25 mg tablet extended release 24 hr 4 Active Active Problems Problem Noted Date Diagnosed Date Left renal mass 02/22/2018 Overview (02/22/2018): Added automatically from request for surgery [id number] Acute postoperative pain of abdomen Status post urological surgery Painful respiration Surgical History Surgery Date Site/Laterality Comments BREAST SURGERY NEPHRECTOMY Left KELOID EXCISION 05/30/2022 - 05/29/2023 Medical History Medical History Date Comments Diabetes mellitus (HCC) Hypercholesteremia Breast cancer (HCC) Diabetic retinopathy (HCC) Sligh tly in both eyes Family History Medical History Relation Name Comments Lung cancer Father Relation Name Status Comments Father Social History Tobacco Use Types Packs/Day Years Used Date Smoking Tobacco: Former Cigarettes 1 15 Smokeless Tobacco: Never Tobacco Cessation:Counseling Given: Not Answered Alcohol Use Standard Drinks/Week Comments Yes 0 (1 standard drink = 0.6 oz pur e alcohol) occassional Comments Unknown Sex and Gender Information Value Date Recorded Sex Assigned at Not on file 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 Gender Identity Not on file Sexual Orientation Not on file Obstetrics History Last Filed Vital Signs Vital Sign Reading Time Taken Comments Blood Pressure 144/85 08/16/2023 3:33 PM CDT Pulse 109 08/16/2023 3:33 PM CDT Temperature 36.6 C (97.8 F) 08/16/2023 3:33 PM CDT Respiratory Rate 16 04/18/2018 11:59 AM LIVESTOCK BRANDS INSPECTOR Oxygen Saturation 95% 04/18/2018 11:59 AM LIVESTOCK BRANDS INSPECTOR Inhaled Oxygen Concentration - - Weight 88.5 kg (195 lb) 08/16/2023 3:33 PM CDT Height 167.6 cm (5' 6) 08/16/2023 3:33 PM CDT Body Mass Index 31.47 08/16/2023 3:33 PM CDT Plan of Treatment Health Maintenance Due Date Last Done Comments Depression Screening 1943 Fall Risk Assessment 1943 Osteoporosis Screening-Bone Density Scan 1943 DTaP/Tdap/Td Vaccine (1 - Tdap) 1954 Hepatitis B Screening 1961 Pneumococcal vaccine 65+ (1 of 1 - PCV) 1993 Zoster Vaccine (1 of 2) 1993 Well Visit 65+ 2008 Influenza Vaccine (#1) 2025 02/27/2019 Medical Devices Implanted Type Area Buttoner Device Identifier Shelf Expiration Date Model / Serial / Lot [email or web address] S620gh Embosphere Saline Syringe Compressible Nonaggregate Highly Target - [id number] Implanted:Qty: 1 on 04/12/2018 at [facility] [email or web address] 07/27/2020 S620GH / / [id number] hiogi [id number] Lloyd 10mm 14cm 4.5 Loop Soft Radiopacity .018in Coil - [id number] Implanted:Qty: 1 on 04/12/2018 at [facility] hiogi 12/13/2022 [id number] / / [id number] hiogi Q96910 Lloyd 10mm 14cm 4.5 Loop Soft Radiopacity .018in Coil - [id number] Implanted:Qty: 1 on 04/12/2018 at [facility] hiogi 12/13/2022 [id number] / / [id number] hiogi [id number] Lloyd 10mm 14cm 4.5 Loop Soft Radiopacity .018in Coil - [id number] Implanted:Qty: 1 on 04/12/2018 at [facility] hiogi 07/25/2022 [id number] / / [id number] [employer] [id number] Lloyd 10mm 14cm 4.5 Loop Soft Radiopacity .018in Coil - [id number] Implanted:Qty: 1 on 04/12/2018 at [facility] [employer] 07/25/2022 [id number] / / [id number] [employer] O61816 Lloyd 8mm 14cm 5.6 Loop Soft Radiopacity Peripheral .018in Coil - [id number] Implanted:Qty: 1 on 04/12/2018 at [facility] [employer] 12/27/2022 [id number] / / [id number] [employer] T42492 Lloyd 6mm 14cm 7.4 Loop Soft Radiopacity .018in Coil - [id number] Implanted:Qty: 1 on 04/12/2018 at [facility] [employer] 02/08/2023 [id number] / / [id number] [employer] D55297 Lloyd 6mm 14cm 7.4 Loop Soft Radiopacity .018in Coil - [id number] Implanted:Qty: 1 on 04/12/2018 at [facility] [employer] 02/10/2023 [id number] / / [id number] [employer] N40081 Lloyd 8mm 14cm 5.6 Loop Soft Radiopacity Peripheral .018in Coil - [id number] Implanted:Qty: 1 on 04/12/2018 at [facility] [employer] 12/27/2022 [id number] / / [id number] [employer] S78239 Lloyd 10mm 14cm 4.5 Loop Soft Radiopacity .018in Coil - [id number] Implanted:Qty: 1 on 04/12/2018 at [facility] [employer] 12/13/2022 [id number] / / [id number] [employer] M86510 Lloyd 8mm 14cm 5.6 Loop Soft Radiopacity Peripheral .018in Coil - [id number] Implanted:Qty: 1 on 04/12/2018 at [facility] [employer] 12/27/2022 [id number] / / [id number] [email or web address] S620gh Embosphere Saline Syringe Compressible Nonaggregate Highly Target - [id number] Implanted:Qty: 1 on 04/12/2018 at [facility] [email or web address] 07/27/2020 S620GH / / [id number] [facility] [employer] S620gh Embosphere Saline Syringe Compressible Nonaggregate Highly Target - [id number] Implanted:Qty: 1 on 04/12/2018 at [facility] [email or web address] 07/27/2020 S620GH / / [id number] [employer] [id number] Lloyd 8mm 14cm 5.6 Loop Soft Radiopacity Peripheral .018in Coil - [id number] Implanted:Qty: 1 on 04/12/2018 at [facility] [employer] 12/27/2022 [id number] / / [id number] [employer] A02432 Lloyd 8mm 14cm 5.6 Loop Soft Radiopacity Peripheral .018in Coil - [id number] Implanted:Qty: 1 on 04/12/2018 at [facility] [employer] 12/27/2022 [id number] / / [id number] [employer] [id number] Lloyd 10mm 14cm 4.5 Loop Soft Radiopacity .018in Coil - [id number] Implanted:Qty: 1 on 04/12/2018 at [facility] [employer] 10/11/2022 [id number] / / [id number] [employer] G67038 Lloyd 8mm 14cm 5.6 Loop Soft Radiopacity Peripheral .018in Coil - [id number] Implanted:Qty: 1 on 04/12/2018 at [facility] [employer] 12/27/2022 [id number] / / [id number] [employer] E08092 Lloyd 10mm 14cm 4.5 Loop Soft Radiopacity .018in Coil - [id number] Implanted:Qty: 1 on 04/12/2018 at [facility] [employer] 07/25/2022 [id number] / / [id number] [employer] A39820 Lloyd 10mm 14cm 4.5 Loop Soft Radiopacity .018in Coil - [id number] Implanted:Qty: 1 on 04/12/2018 at [facility] [employer] 10/11/2022 [id number] / / [id number] [employer] C36747 Lloyd 10mm 14cm 4.5 Loop Soft Radiopacity .018in Coil - [id number] Implanted:Qty: 1 on 04/12/2018 at [facility] [employer] 10/11/2022 [id number] / / [id number] [employer] F24815 Lloyd 10mm 14cm 4.5 Loop Soft Radiopacity .018in Coil - [id number] Implanted:Qty: 1 on 04/12/2018 at [facility] [employer] 07/25/2022 [id number] / / [id number] [employer] H21158 Lloyd 10mm 14cm 4.5 Loop Soft Radiopacity .018in Coil - [id number] Implanted:Qty: 1 on 04/12/2018 at [facility] [employer] 12/13/2022 C59264 / / [id number] [email or web address] S620gh Embosphere Saline Syringe Compressible Nonaggregate Highly Target - [id number] Implanted:Qty: 1 on 04/12/2018 at [facility] [email or web address] 07/27/2020 S620GH / / [id number] [employer] D46617 Lloyd 10mm 14cm 4.5 Loop Soft Radiopacity .018in Coil - [id number] Implanted:Qty: 1 on 04/12/2018 at [facility] [employer] 12/13/2022 O19635 / / [id number] [email or web address] S620gh Embosphere Saline Syringe Compressible Nonaggregate Highly Target - [id number] Implanted:Qty: 1 on 04/12/2018 at [facility] [email or web address] 07/27/2020 S620GH / / [id number] [employer] E97817 Lloyd 8mm 14cm 5.6 Loop Soft Radiopacity Peripheral .018in Coil - [id number] Implanted:Qty: 1 on 04/12/2018 at [facility] [employer] 12/27/2022 [id number] / / [id number] [employer] [id number] Angio-Seal Vip Bondek-Plus 6fr .035in 70cm Hemostatic Latex Free - [id number] Implanted:Qty: 1 on 04/12/2018 at [facility] [employer] 01/27/2019 [id number] / / [id number] [email or web address] S620 Embosphere Saline Syringe Compressible Nonaggregate Highly Target - [id number] Implanted:Qty: 1 on 04/12/[address] [facility] 07/27/2020 S620 / / [id number] [facility] S620 Embosphere Saline Syringe Compressible Nonaggregate Highly Target - [id number] Implanted:Qty: 1 on 04/12/[address] [facility] 11/26/2020 S620GH / / [id number] [facility] S620 Embosphere Saline Syringe Compressible Nonaggregate Highly Target - [id number] Implanted:Qty: 1 on 04/12/[address] [facility] 07/27/2020 S620GH / / [id number] [facility] S620 Embosphere Saline Syringe Compressible Nonaggregate Highly Target - [id number] Implanted:Qty: 1 on 04/12/[address] [facility] 11/26/2020 S620 / / [id number] [facility] S620 Embosphere Saline Syringe Compressible Nonaggregate Highly Target - [id number] Implanted:Qty: 1 on 04/12/[address] [facility] 11/26/2020 S620 / / [id number] [employer] S32661 Lloyd 10mm 14cm 4.5 Loop Soft Radiopacity .018in Coil - [id number] Implanted:Qty: 1 on 04/12/2018 at [facility] [employer] 12/13/2022 [id number] / / [id number] Insurance [facility] MEDICARE ADVANTAGE [facility] Address: [address] [place] [address] Advance Directives For more information, please contact: [phone] * Full Code (Latest Code Status on File) Date Activated Date Inactivated Comments 04/12/2018 1:59 PM 04/18/2018 4:16 PM * Full Code Date Activated Date Inactivated Comments 04/12/2018 10:16 AM 04/12/2018 1:59 PM * Full Code Date Activated Date Inactivated Comments 04/12/2018 10:01 AM 04/12/2018 10:16 AM Care Teams Reverberatory Furnace Supervisor Relationship Specialty Start Date End Date Diaz Durant MD PCP - General Family Medicine 02/22/18
--- OUTSIDE RECORDS SUMMARY | 2025-02-06 12:08 | XMS_ITS | Encounter Summary ---
Author Organization [facility] Address [address] [place] [address] Care Team Providers Care Environmental Studies Faculty Member Name Role Phone Diaz Durant MD Primary Care Provider [phone] Encounter Details Date Type Department Care Team (Late st Contact Info) Description 02/25/2020 Chart Note [facility] Radiation Therapy [address] [place] [address] [place] [address] [place] [address] Social History Tobacco Use Types Packs/Day Years [...] on file Sexual Orientation Not on file COVID-19 Exposure Response Date Recorded In the last month, have you been in contact with someone who was confirmed or suspected to have Coronavirus / COVID-19? No / Unsure 02/25/2020 11:30 AM CDT documented as of this encounter Plan of Treatment Upcoming Encounters Date Type Department Care Team (Late st Contact Info) Description 03/05/2025 10:00 AM CDT Office Visit [facility] Oncology and Hematology - Brian [address] [facility] [address] [facility] [address] [place] [address] Pancho Fleming MD [address] [facility] [address] [place] [address] documented as of this encounter Visit Diagnoses Not on filedocumented in this encounter Care Teams Environmental Studies Faculty Member Relationship Specialty Start Date End Date Diaz Durant MD [address] [place] [address] PCP - General Family Practice 08/29/18 documented as of this encounter
--- OUTSIDE RECORDS SUMMARY | 2025-02-06 12:08 | XMS_ITS | Encounter Summary ---
Author Organization [facility]3] [facility] Address [address] [place] [address] Care Team Providers Care Marketing Effectiveness Manager Name Role Phone Diaz Durant MD Primary Care Provider [phone] Encounter Details Date Type Department Care Team (Late Contact Info) Description 02/06/2025 Orders Only [facility] Oncology and Hematology [facility] [address] [place] [address] Pancho Fleming MD [address] [facility] [address] [place] [address] 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 (CMS/HCC) (Primary Dx) Social History Tobacco Use Types Packs/Day Years [...] Encounters Date Type Department Care Team (Late Contact Info) Description 03/05/2025 10:00 AM CDT Office Visit [facility] Oncology and Hematology - [address] [place] [address] Pancho Fleming MD [address] [facility] [address] [place] [address] Scheduled Orders Name Type Priority Associated Diagnoses Orde r Schedule C-REACTIVE PROTEIN Lab Routine 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 (CMS/HCC) Expected: 02/06/2025, Expires: 02/06/2026 CBC WITH DIFFERENTIAL Lab Routine 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 (CMS/HCC) Expected: 02/06/2025, Expires: 02/06/2026 VITAMIN B12 AND FOLATE Lab Routine 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 (CMS/HCC) Expected: 02/06/2025, Expires: 02/06/2026 documented as of this encounter Visit Diagnoses Diagnosis 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 (CMS/HCC)- Primary documented in this encounter Care Teams Marketing Effectiveness Manager Relationship Specialty Start Date End Date Diaz Durant MD [address] [place] [address] PCP - General Family Practice 08/29/18 documented as of this encounter
[2025-02-06 12:19] LABS: Parathyroid Intact 116.9 pg/mL (14.5-75.2)
[2025-02-06 12:56] LABS: Cholesterol 127 mg/dL (0-200); HDL Direct 47 mg/dL; Triglycerides 247 mg/dL (<150)
== END 2025-02-06 11:11 | disposition home or self-care (01) ==
PROVIDERS: Internal Medicine Nephrology; PCP Family Medicine; Referring Provider Internal Medicine Cardiovascular Disease; Visit Provider Nurse Practitioner Family
DX: I12.9 Hypertensive chronic kidney disease with stage 1 through stage 4 chronic kidney disease, or unspecified chronic kidney disease (principal); N18.32 Chronic kidney disease, stage 3b; E78.49 Other hyperlipidemia; R30.0 Dysuria
CPT/HCPCS: 36415; 80061; 80069; 81001; 82570; 83970; 84156; 85027; 87077; 87086; 87186

== ENCOUNTER 2025-02-08 11:34 | Outpatient (CLI) | payer MEDICARE, SELFPAY | END 2025-02-08 11:35 | disposition home or self-care (01) | LOC: ANHLAB 11:35 | PROVIDERS: PCP Family Medicine; Visit Provider Internal Medicine Nephrology | DX: R82.81 Pyuria (principal) | CPT/HCPCS: 87077; 87086; 87186 ==

== ENCOUNTER 2025-02-26 09:41 | Outpatient (CLI) | payer MEDICARE, SELFPAY ==
[2025-02-26 09:57] LABS: Hematocrit 45.3 % (37.0-47.0); Hemoglobin 14.4 g/dL (12.0-15.0); Immature Granulocyte Percent A 0.1 % (0-0.5); Lymphocytes Absolute Auto 2.16 K/mm3 (0.9-3.2); Mean Corpuscular HGB Conc 31.8 g/dl (32-36); Mean Corpuscular Hemoglobin 29.1 pg (26-34); Mean Corpuscular Volume 91.7 fl (80-100); Nucleated Red Blood Cells Absolute Auto 0.000 K/mm3 (0.0-0.012); Nucleated Red Blood Cells Perc 0.0 % (0.0-0.2); Platelet Count Result 176 k/mm3 (150-375); Red Blood Count 4.94 M/mm3 (4.2-5.4); White Blood Count 9.7 K/mm3 (4.5-10.0)
--- OUTSIDE RECORDS SUMMARY | 2025-02-26 10:23 | XMS_ITS | Encounter Summary ---
Author Organization [facility] Address [address] [place] [address] Care Team Providers Care Wildlife Conservation Professor Name Role Phone Roger Ferreira MD Primary Care Provide r Diaz Durant MD Primary Care Provider [phone] Encounter Details Date Type Department Care Team (Late st Contact Info) Description 01/17/2018 Orders Only [facility] Health Information Management [address] [place] [address] Scanning, Provider Social History Tobacco Use Types Packs/Day Years Used Date Smoking Tobacco: Never Assessed Comments Unknown Sex and Gender Information Value Date Recorded Sex Assigned at Not on file Legal Sex Female 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
--- OUTSIDE RECORDS SUMMARY | 2025-02-26 10:23 | XMS_ITS | Encounter Summary ---
Author Organization [facility] Address [address] [place] [address] Care Team Providers Care Reporter Name Role Phone Diaz Durant MD Primary Care Provider [phone] Encounter Details Date Type Department Care Team (Late st Contact Info) Description 02/25/2020 Chart Note [facility] Radiation Therapy [address] [place] [address] [place] [address] [place] [address] Social History Tobacco Use Types [...] Description 03/05/2025 10:00 AM CDT Office Visit [facility] Oncology and Hematology - Brian [address] [place] [address] Pancho Fleming MD [address] [facility] [address] [place] [address] documented as of this encounter Visit Diagnoses Not on filedocumented in this encounter Care Teams Reporter Relationship Specialty Start Date End Date Diaz Durant MD [address] [place] [address] PCP - General Family Practice 08/29/18 documented as of this encounter
--- OUTSIDE RECORDS SUMMARY | 2025-02-26 10:23 | XMS_ITS | Clinical Summary ---
Author Organization [facility] Address [address] [place] [address] Care Team Providers Care Shampoo Assistant Name Role Phone Diaz Durant MD Primary Care Provider [phone] Allergies Active Allergy Reactions Criticality Noted Date [...] Encounters Date Type Department Care Team Description 02/26/2025 Orders Only [facility] Oncology and Hematology [facility] [address] [place] [address] Pancho Fleming MD 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 (CMS/HCC) (Primary Dx) 02/12/2025 External Device Data STL ABSTRACTION Provider, Abstract 02/06/2025 Orders Only [facility] Oncology and [facility] [address] [place] [address] Pancho Fleming MD Malignant neoplasm of left [...] Description 03/05/2025 10:00 AM CDT Office Visit [facility] Oncology and Hematology - Brian [address] [facility] [address] [place] [address] Pancho Fleming MD [address] [facility] [address] [place] [address] Health Maintenance Due Date Last Done Comments DTAP/TDAP/TD VACCINES (1 - Tdap) 1962 PNEUMOCOCCAL VACCINE 50+ YEARS (1 of 1 - PCV) 04/09/19 93 ZOSTER VACCINE (1 of 2) 1993 OSTEOPOROSIS SCREENING 2008 RSV VACCINE (60+ or ) (1 - 1-dose 75+ series) 2018 Medicare Advantage ([place]) Prev entative Visit/Annual Wellness Visit 05/30/2024 INFLUENZA VACCINE (#1) 2024 Insurance [employer] PPO MCR A[employer] PPO MCR Care Teams Shampoo Assistant Relationship Specialty Start Date End Date Diaz Durant MD [address] [place] [address] PCP - General Family Practice 08/29/18
--- OUTSIDE RECORDS SUMMARY | 2025-02-26 10:23 | XMS_ITS | Clinical Summary ---
Author Organization [facility] [address] Address [address] [place] [address] Care Team Providers Care Stained Glass Joiner Name Role Phone Diaz Durant MD Primary Care Provider [phone] Allergies Active Allergy Reactions Criticality Noted Date [...] 1 tablet (81 mg total) by mouth body rolling machine tender before breakfast Active insulin glargine (LANTUS) 100 [...] (02/22/2018): Added automatically from request for surgery [id number] Acute postoperative pain of abdomen Status post urological surgery Painful respiration Surgical History Surgery Date Site/Laterality Comments BREAST SURGERY NEPHRECTOMY Left KELOID EXCISION 05/30/2022 - 05/29/2023 Medical History Medical History Date Comments Diabetes mellitus Hypercholesteremia Breast cancer (HCC) Diabetic retinopathy (HCC) [...] on file Legal Sex 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 Gender Identity Not on file Sexual Orientation Not on file Obstetrics History Last Filed Vital Signs Vital Sign Reading Time Taken Comments Blood Pressure 144/85 08/16/2023 3:33 PM CDT Pulse 109 08/16/2023 3:33 PM CDT Temperature 36.6 C (97.8 F) 08/16/2023 3:33 PM CDT Respiratory Rate 16 04/18/2018 11:59 AM APPLIANCE PARTS COUNTER CLERK Oxygen Saturation 95% 04/18/2018 11:59 AM APPLIANCE PARTS COUNTER CLERK Inhaled Oxygen Concentration - - Weight 88.5 [...] Screening 1961 Pneumococcal vaccine 65+ (1 of 2 - PCV) 1962 Zoster Vaccine (1 of 2) 1962 Well Visit 65+ 2008 Influenza Vaccine (#1) 2025 02/27/2019, 2014 Medical Devices Implanted Type Area Learn To Swim Instructor Device Identifier Shelf Expiration Date Model / Serial / Lot [email or web address] S620gh [facility] Saline Syringe Compressible Nonaggregate Highly Target - [id number] Implanted:Qty: 1 on 04/12/2018 at [facility] [email or web address] 07/27/2020 S620GH / / [id number] Vidder [id number] Lloyd 10mm 14cm 4.5 Loop Soft Radiopacity .018in Coil - [id number] Implanted:Qty: 1 on 04/12/2018 at [facility] [employer] 12/13/2022 [id number] / / [id number] Vidder [id number] Lloyd 10mm 14cm 4.5 Loop Soft Radiopacity .018in Coil - [id number] Implanted:Qty: 1 on 04/12/2018 at [facility] [employer] 12/13/2022 [id number] / / [id number] Vidder [id number] Lloyd 10mm 14cm 4.5 Loop Soft Radiopacity .018in Coil - [id number] Implanted:Qty: 1 on 04/12/2018 at [facility] [employer] 07/25/2022 K30649 / / [id number] Corely[employer] Inc E13234 Lloyd 10mm 14cm 4.5 Loop Soft Radiopacity .018in Coil - [id number] Implanted:Qty: 1 on 04/12/2018 at [facility] [employer] 07/25/2022 P12225 / / [id number] [employer] [id number] Lloyd 8mm 14cm 5.6 Loop Soft Radiopacity Peripheral .018in Coil - [id number] Implanted:Qty: 1 on 04/12/2018 at [facility] [employer] 12/27/2022 F77566 / / [id number] [employer] Inc H38711 Lloyd 6mm 14cm 7.4 Loop Soft Radiopacity .018in Coil - [id number] Implanted:Qty: 1 on 04/12/2018 at [facility] [employer] 02/08/2023 P72228 / / [id number] [employer] S71622 Lloyd 6mm 14cm 7.4 Loop Soft Radiopacity .018in Coil - [id number] Implanted:Qty: 1 on 04/12/2018 at [facility] [employer] 02/10/2023 M36358 / / [id number] [employer] G05074 Lloyd 8mm 14cm 5.6 Loop Soft Radiopacity Peripheral .018in Coil - [id number] Implanted:Qty: 1 on 04/12/2018 at [facility] [employer] 12/27/2022 O32500 / / [id number] [employer] B13258 Lloyd 10mm 14cm 4.5 Loop Soft Radiopacity .018in Coil - [id number] Implanted:Qty: 1 on 04/12/2018 at [facility] [employer] 12/13/2022 H13782 / / [id number] [employer] E03610 Lloyd 8mm 14cm 5.6 Loop Soft Radiopacity Peripheral .018in Coil - [id number] Implanted:Qty: 1 on 04/12/2018 at [facility] [employer] 12/27/2022 [id number] / / [id number] [email or web address] S620gh Embosphere Saline Syringe Compressible Nonaggregate Highly Target - [id number] Implanted:Qty: 1 on 04/12/2018 at [facility] [employer] 07/27/2020 S620GH / / [id number] [employer] S620gh Embosphere Saline Syringe Compressible Nonaggregate Highly Target - [id number] Implanted:Qty: 1 on 04/12/2018 at [facility] [employer] 07/27/2020 S620GH / / [id number] [employer] [id number] Lloyd 8mm 14cm 5.6 Loop Soft Radiopacity Peripheral .018in Coil - Implanted:Qty: 1 on 04/12/2018 at [facility] [employer] 12/27/2022 E57652 / / [id number] [employer] Inc O60757 Lloyd 8mm 14cm 5.6 Loop Soft Radiopacity Peripheral .018in Coil - [id number] Implanted:Qty: 1 on 04/12/2018 at [facility] [employer] 12/27/2022 R25615 / / [id number] [employer] O75727 Lloyd 10mm 14cm 4.5 Loop Soft Radiopacity .018in Coil - [id number] Implanted:Qty: 1 on 04/12/2018 at [facility] [employer] 10/11/2022 M09570 / / [id number] [employer] S13202 Lloyd 8mm 14cm 5.6 Loop Soft Radiopacity Peripheral .018in Coil - [id number] Implanted:Qty: 1 on 04/12/2018 at [facility] [employer] 12/27/2022 T75558 / / [id number] [employer] [id number] Lloyd 10mm 14cm 4.5 Loop Soft Radiopacity .018in Coil - [id number] Implanted:Qty: 1 on 04/12/2018 at [facility] [employer] 07/25/2022 N79159 / / [id number] [employer] [id number] Lloyd 10mm 14cm 4.5 Loop Soft Radiopacity .018in Coil - [id number] Implanted:Qty: 1 on 04/12/2018 at [facility] [employer] 10/11/2022 X32961 / / [id number] [employer] [id number] Lloyd 10mm 14cm 4.5 Loop Soft Radiopacity .018in Coil - [id number] Implanted:Qty: 1 on 04/12/2018 at [facility] [employer] 10/11/2022 U45350 / / [id number] [employer] [id number] Lloyd 10mm 14cm 4.5 Loop Soft Radiopacity .018in Coil - [id number] Implanted:Qty: 1 on 04/12/2018 at [facility] [employer] 07/25/2022 S40135 / / [id number] [employer] [id number] Lloyd 10mm 14cm 4.5 Loop Soft Radiopacity .018in Coil - [id number] Implanted:Qty: 1 on 04/12/2018 at [facility] [employer] 12/13/2022 Q94815 / / [id number] [email or web address] S620 Embosphere Saline Syringe Compressible Nonaggregate Highly Target - [id number] Implanted:Qty: 1 on 04/12/2018 at [facility] [email or web address] 07/27/2020 S620GH / / [id number] Vidder [id number] Lloyd 10mm 14cm 4.5 Loop Soft Radiopacity .018in Coil - [id number] Implanted:Qty: 1 on 04/12/2018 at [facility] [employer] 12/13/2022 M26378 / / [id number] [email or web address] S620gh Embosphere Saline Syringe Compressible Nonaggregate Highly Target - [id number] Implanted:Qty: 1 on 04/12/2018 at [facility] [email or web address] 07/27/2020 S620GH / / [id number] [employer] [id number] Lloyd 8mm 14cm 5.6 Loop Soft Radiopacity Peripheral .018in Coil - [id number] Implanted:Qty: 1 on 04/12/2018 at [facility] [employer] 12/27/2022 D83522 / / [id number] [employer] [id number] Angio-Seal Vip Bondek-Plus 6fr .035in 70cm Hemostatic Latex Free - [id number] Implanted:Qty: 1 on 04/12/2018 at [facility] [employer] 01/27/2019 237642 / / [id number] [facility] S620 Embosphere Saline Syringe Compressible Nonaggregate Highly Target - [id number] Implanted:Qty: 1 on 04/12/2018 at [facility] 07/27/2020 S620 / / [id number] [facility] S620 Embosphere Saline Syringe Compressible Nonaggregate Highly Target - [id number] Implanted:Qty: 1 on 04/12/2018 at [facility] 11/26/2020 S620 / / [id number] [facility] S620 Embosphere Saline Syringe Compressible Nonaggregate Highly Target - [id number] Implanted:Qty: 1 on 04/12/2018 at [facility] 07/27/2020 S620 / / [id number] [facility] S620 Embosphere Saline Syringe Compressible Nonaggregate Highly Target - [id number] Implanted:Qty: 1 on 04/12/2018 at [facility] 11/26/2020 S620 / / [id number] [facility] S620 Embosphere Saline Syringe Compressible Nonaggregate Highly Target - [id number] Implanted:Qty: 1 on 04/12/2018 at [facility] 11/26/2020 S620 / / [id number] [employer] Inc E99893 Lloyd 10mm 14cm 4.5 Loop Soft Radiopacity .018in Coil - [id number] Implanted:Qty: 1 on 04/12/2018 at [facility] [employer] 12/13/2022 [id number] / / [id number] Insurance [facility] Address: [address] [address] [place] [address] ON LICENSE OF [facility] MEDICARE ON LICENSE OF [facility] MEDICARE Advance Directives For more information, please contact: [phone] * Full Code (Latest Code Status on File) Date Activated Date Inactivated Comments 04/12/2018 1:59 PM 04/18/2018 4:16 PM * Full Code Date Activated Date Inactivated Comments 04/12/2018 10:16 AM 04/12/2018 1:59 PM * Full Code Date Activated Date Inactivated Comments 04/12/2018 10:01 AM 04/12/2018 10:16 AM Care Teams Stained Glass Joiner Relationship Specialty Start Date End Date Diaz Durant MD PCP - General Family Medicine 02/22/18
--- OUTSIDE RECORDS SUMMARY | 2025-02-26 10:23 | XMS_ITS | Encounter Summary ---
Author Organization [facility] Address [address] [place] [address] Care Team Providers Care Battery Stacker Name Role Phone Diaz Durant MD Primary Care Provider [phone] Encounter Details Date Type Department Care Team (Late Contact Info) Description 02/26/2025 Orders Only [facility] Oncology and Hematology [facility] [address] [place] [address] Pancho Fleming MD [address] [facility] [address] [place] [address] Malignant neoplasm of left kidney [...] Description 03/05/2025 10:00 AM CDT Office Visit [facility] Oncology and Hematology - [address] [place] [address] Pancho Fleming MD [address] [facility] [address] [place] [address] Scheduled Orders Name Type Priority Associated Diagnoses Orde r Schedule BASIC METABOLIC PANEL Lab Routine 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 [address] PCP - General Family Practice 08/29/18 documented as of this encounter
[2025-02-26 12:07] LABS: Anion Gap 10 mmol/L (4-12); Blood Urea Nitrogen 33 mg/dL (7-17); CRP 1.0 mg/dL (<1.0); Calcium 9.2 mg/dL (8.4-10.2); Carbon Dioxide 23 mmol/L (22-30); Chloride 107 mmol/L (98-107); Estimated Glomerular Filt Rate 38; Glucose 173 mg/dL (65-110); Potassium 4.7 mmol/L (3.4-5.0); Sodium 140 mmol/L (137-145)
[2025-02-26 12:55] LABS: Vitamin B12 986.0 pg/mL (239-931)
== END 2025-02-26 09:42 | disposition home or self-care (01) ==
LOC: ANHLAB 09:42
PROVIDERS: PCP Family Medicine; Visit Provider Internal Medicine Hematology & Oncology
DX: C64.2 Malignant neoplasm of left kidney, except renal pelvis (principal); D64.9 Anemia, unspecified
CPT/HCPCS: 36415; 80048; 82607; 85025; 86140

== ENCOUNTER 2025-03-15 09:34 | Outpatient (CLI) | payer MEDICARE, SELFPAY ==
--- NOTE | ~2025-03-15 | CT_ITS ---
CT chest abdomen pelvis w con HISTORY: mal charlotte of left kidney . COMPARISON: 02/14/2024 TECHNIQUE: Axial images of the chest, abdomen and pelvis were obtained without and with infusion of 100 I[address] 300. FINDINGS: CT CHEST: The examination demonstrates 10 mm groundglass nodule within the right lower lobe measured on axial image 54. No pathologically enlarged hilar or mediastinal lymphadenopathy is seen. Cardiac size and mediastinal configuration are normal in appearance. The pulmonary artery and thoracic aorta are normal in caliber and patency. Osseous structures are intact. The visualized organs of the upper abdomen are unremarkable. IMPRESSION: 10 mm groundglass nodule within the right lower lobe. No pathologic enhancement is noted. No pathologically enlarged mediastinal lymphadenopathy is noted. CT abdomen and pelvis with contrast: Fatty infiltration of the liver is noted. No intrahepatic mass or ductal dilatation is evident. Cholelithiasis is noted without evidence of acute cholecystitis. 6 mm enhancing nodule in the uncinate process of the pancreas is stable. The adrenal glands are symmetric in size. The kidneys demonstrate symmetric uptake and excretion of contrast. No cystic mass is evident. There is no solid mass. There is no hydronephrosis. multiple ventral wall hernias containing large and small bowel loops. There are no bowel obstruction. The bladder and rectum are normal. No free intraperitoneal fluid or air is evident. There is no significant retroperitoneal lymphadenopathy. The aorta, visceral vessels and renal arteries demonstrate normal caliber and patency. The lower thoracic and lumbar vertebrae are in normal alignment. IMPRESSION: 6 mm enhancing nodule in stay process of the pancreas is stable. Multiple ventral wall hernias containing large bowel and small bowel loops are noted. There is no bowel obstruction. Cholelithiasis. All CT scans at this facility are performed using low dose modulation techniques as appropriate to perform exam including the following: automated exposure control; use of iterative reconstruction technique; adjustment of the mA and/or kV according to patient size (this includes techniques or standardized protocols for targeted exams where dose is matched to indication/reason for exam) Reviewed, dictated and finalized at location S. IMPRESSION: 10 mm groundglass nodule within the right lower lobe. No pathologic enhancement is noted. No pathologically enlarged mediastinal lymphadenopathy is noted. CT abdomen and pelvis with contrast: Fatty infiltration of the liver is noted. No intrahepatic mass or ductal dilata tion is evident. Cholelithiasis is noted without evidence of acute cholecystiti s. 6 mm enhancing nodule in the uncinate process of the pancreas is stable. The adrenal glands are symmetric in size. The kidneys demonstrate symmetric uptake and excretion of contrast. No cystic m ass is evident. There is no solid mass. There is no hydronephrosis. multiple ventral wall hernias containing large and small bowel loops. There are no bowel obstruction. The bladder and rectum are normal. No free intraperitoneal fluid or air is evid ent. There is no significant retroperitoneal lymphadenopathy. The aorta, visceral vessels and renal arteries demonstrate normal caliber and p atency. The lower thoracic and lumbar vertebrae are in normal alignment. IMPRESSION: 6 mm enhancing nodule in stay process of the pancreas is stable. Multiple ventral wall hernias containing large bowel and small bowel loops are noted. There is no bowel obstruction. Cholelithiasis. All CT scans at this facility are performed using low dose modulation techniqu es as appropriate to perform exam including the following: automated exposure c ontrol; use of iterative reconstruction technique; adjustment of the mA and/or kV according to patient size (this includes techniques or standardized protocol s for targeted exams where dose is matched to indication/reason for exam)
--- OUTSIDE RECORDS SUMMARY | 2025-03-15 10:05 | XMS_ITS | Clinical Summary ---
Author Organization [facility] Address [address] [facility] [place] [address] Care Team Providers Care Comptroller Name Role Phone Diaz Durant MD Primary Care Provider [phone] Allergies Active Allergy Reactions Criticality Noted Date Comments Hymenoptera Allergenic Extract Anaphylaxis High 10/2017 Medications atorvastatin (LIPITOR) 80 mg tablet TK 1 T PO QD 0 8 Active aspirin (ECOTRIN EC) 81 [...] SureSoft Lancing Dev 21 gauge 0 Active Jardiance 25 mg tablet Take 10 mg by mouth daily in the morning. 5 Active esomeprazole (NexIUM) 40 mg Capsule, Delayed Release(E.C.) 5 Active losartan (COZAAR) 25 mg tablet Take 25 mg by mouth daily. Active memantine (NAMENDA) 10 mg Tablet Take 10 mg by mouth daily. 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 (CMS/HCC) (Primary Dx) 02/28/2025 Orders Only [facility] Oncology and Hematology [address] [place] [address] Pancho Fleming MD 02/26/2025 Orders Only [facility] Oncology and Hematology - [address] [place] [address] Pancho Fleming MD 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 (CMS/HCC) (Primary Dx) 02/12/2025 External Device Data STL ABSTRACTION Provider, Abstract 02/06/2025 Orders Only [facility] Oncology and Hematology [address] [place] [address] Pancho Fleming MD Malignant neoplasm of left [...] Sign Reading Time Taken Comments Blood Pressure 134/85 03/05/2025 9:44 AM CDT Pulse 95 03/05/2025 9:41 AM CDT Temperature 36.4 C (97.6 F) 03/05/2025 9:41 AM CDT Respiratory Rate 15 03/05/2025 9:41 AM CDT Oxygen Saturation 91% 03/05/2025 9:41 AM CDT Inhaled Oxygen Concentration - - Weight 89.2 kg (196 lb 9.6 oz) 03/05/2025 9:41 A M CDT Height 167.6 cm (5' 6) 12/02/2022 9:36 AM CDT Body Mass Index 31.73 12/02/2022 9:36 AM CDT Plan of Treatment Upcoming Encounters Date Type Department Care Team (Late st Contact Info) Description 03/22/2025 2:35 PM CDT Telephone Check Up [facility] Oncology and Hematology - [address] [facility] [address] [place] [address] Pancho Fleming MD [address] [facility] [address] [place] [address] Health Maintenance Due Date Last Done Comments DTAP/TDAP/TD VACCINES (1 - Tdap) 1962 PNEUMOCOCCAL VACCINE 50+ YEA RS (1 of 1 - PCV) 1993 ZOSTER VACCINE (1 of 2) 1993 OSTEOPOROSIS SCREENING 2008 RSV VACCINE (60+ or ) (1 - 1-dose 75+ series) 2018 Medicare Advant[place] ([place]) Prev entative Visit/Annual Wellness Visit 05/30/2024 INFLUENZA VACCINE (#1) 2024 COVID-19 Vaccine Completed 10/08/2024, 03/06/2024 Procedures Procedure Name Priority Date/Time Associated Diagnosis Comments COMPREHENSIVE METABOLIC PANEL Routine 02/26/2025 12:28 PM CDT CBC WITH AUTODIFFERENTIAL Routine 2024 11:54 AM CDT from Last 3 Months Results * COMPREHENSIVE METABOLIC PANEL (02/26/2025 12:28 PM CDT) Blood Pancho Fleming MD CHEMISTRY ORDERABLES Final Resu lt * CBC WITH AUTODIFFERENTIAL (02/26/2025 11:54 AM CDT) Blood Pancho Fleming MD HEMATOLOGY ORDERABLES Final Res ult from Last 3 Months Insurance [facility] [facility] [employer] [facility] Care Teams Comptroller Relationship Specialty Start Date End Date Diaz Durant MD [address] [place] [address] PCP - General Family Practice 08/29/18
--- OUTSIDE RECORDS SUMMARY | 2025-03-15 10:05 | XMS_ITS | Clinical Summary ---
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 Gender Identity Not on file Sexual Orientation Not on file Obstetrics History Last Filed Vital Signs Vital Sign Reading Time Taken Comments Blood Pressure 144/85 08/16/2023 3:33 PM CDT Pulse 109 08/16/2023 3:33 PM CDT Temperature 36.6 C (97.8 F) 08/16/2023 3:33 PM CDT Respiratory Rate 16 04/18/2018 11:59 AM TENON MACHINE OPERATOR Oxygen Saturation 95% 04/18/2018 11:59 AM TENON MACHINE OPERATOR Inhaled Oxygen Concentration - - Weight 88.5 [...] 02/27/2019, 2014 Medical Devices Implanted Type Area Mortgage Lender Device Identifier Shelf Expiration Date Model / Serial / Lot [employer] S[facility] Saline Syringe Compressible Nonaggregate Highly Target - [id number] Implanted:Qty: 1 on 04/12/2018 at [facility] [employer] 07/27/2020 S620GH / / [id number] [employer] [id number] Lloyd 10mm 14cm 4.5 Loop Soft Radiopacity .018in Coil - [id number] Implanted:Qty: 1 on 04/12/2018 at [facility] [employer] 12/13/2022 [id number] / / [id number] [employer] [id number] Lloyd 10mm 14cm 4.5 Loop Soft Radiopacity .018in Coil - [id number] Implanted:Qty: 1 on 04/12/2018 at [facility] [employer] 12/13/2022 H66733 / / [id number] [employer] [id number] Lloyd 10mm 14cm 4.5 Loop Soft Radiopacity .018in Coil - [id number] Implanted:Qty: 1 on 04/12/2018 at [facility] [employer] 07/25/2022 P30833 / / [id number] [employer] M51870 Lloyd 10mm 14cm 4.5 Loop Soft Radiopacity .018in Coil - [id number] Implanted:Qty: 1 on 04/12/2018 at [facility] [employer] 07/25/2022 M56033 / / [id number] [employer] [id number] Lloyd 8mm 14cm 5.6 Loop Soft Radiopacity Peripheral .018in Coil - [id number] Implanted:Qty: 1 on 04/12/2018 at [facility] [employer] 12/27/2022 Z81039 / / [id number] [employer] E05249 Lolyd 6mm 14cm 7.4 Loop Soft Radiopacity .018in Coil - [id number] Implanted:Qty: 1 on 04/12/2018 at [facility] [employer] 02/08/2023 G86948 / / [id number] [employer] V38038 Lloyd 6mm 14cm 7.4 Loop Soft Radiopacity .018in Coil - [id number] Implanted:Qty: 1 on 04/12/2018 at [facility] [employer] 02/10/2023 C69310 / / [id number] [employer] S84595 Lloyd 8mm 14cm 5.6 Loop Soft Radiopacity Peripheral .018in Coil - [id number] Implanted:Qty: 1 on 04/12/2018 at [facility] [employer] 12/27/2022 S28421 / / [id number] [employer] E66391 Lloyd 10mm 14cm 4.5 Loop Soft Radiopacity .018in Coil - [id number] Implanted:Qty: 1 on 04/12/2018 at [facility] [employer] 12/13/2022 B05444 / / [id number] [employer] P56156 Lloyd 8mm 14cm 5.6 Loop Soft Radiopacity Peripheral .018in Coil - [id number] Implanted:Qty: 1 on 04/12/2018 at [facility] [employer] 12/27/2022 W06833 / / [id number] [employer] S620gh Embosphere Saline Syringe Compressible Nonaggregate Highly Target - [id number] Implanted:Qty: 1 on 04/12/2018 at [facility] [employer] 07/27/2020 S620GH / / [id number] [employer] S620gh Embosphere Saline Syringe Compressible Nonaggregate Highly Target - [id number] Implanted:Qty: 1 on 04/12/2018 at [facility] [employer] 07/27/2020 S620GH / / [id number] [employer] [id number] Lloyd 8mm 14cm 5.6 Loop Soft Radiopacity Peripheral .018in Coil - [id number] Implanted:Qty: 1 on 04/12/2018 at [facility] [employer] 12/27/2022 H66001 / / [id number] [employer] Q01254 Lloyd 8mm 14cm 5.6 Loop Soft Radiopacity Peripheral .018in Coil - [id number] Implanted:Qty: 1 on 04/12/2018 at [facility] [employer] 12/27/2022 P14742 / / [id number] [employer] [id number] Lloyd 10mm 14cm 4.5 Loop Soft Radiopacity .018in Coil - [id number] Implanted:Qty: 1 on 04/12/2018 at [facility] [employer] 10/11/2022 X87095 / / [id number] [employer] H18665 Lloyd 8mm 14cm 5.6 Loop Soft Radiopacity Peripheral .018in Coil - [id number] Implanted:Qty: 1 on 04/12/2018 at [facility] [employer] 12/27/2022 X57247 / / [id number] [employer] [id number] Lloyd 10mm 14cm 4.5 Loop Soft Radiopacity .018in Coil - [id number] Implanted:Qty: 1 on 04/12/2018 at [facility] [employer] 07/25/2022 Q54530 / / [id number] [employer] L83374 Lloyd 10mm 14cm 4.5 Loop Soft Radiopacity .018in Coil - [id number] Implanted:Qty: 1 on 04/12/2018 at [facility] [employer] 10/11/2022 X09030 / / [id number] [employer] G05113 Lloyd 10mm 14cm 4.5 Loop Soft Radiopacity .018in Coil - [id number] Implanted:Qty: 1 on 04/12/2018 at [facility] [employer] 10/11/2022 W12631 / / [id number] [employer] G34199 Lloyd 10mm 14cm 4.5 Loop Soft Radiopacity .018in Coil - [id number] Implanted:Qty: 1 on 04/12/2018 at [facility] [employer] 07/25/2022 K43334 / / [id number] [employer] [id number] Lloyd 10mm 14cm 4.5 Loop Soft Radiopacity .018in Coil - [id number] Implanted:Qty: 1 on 04/12/2018 at [facility] [employer] 12/13/2022 K84489 / / [id number] [employer] S620 Embosphere Saline Syringe Compressible Nonaggregate Highly Target - [id number] Implanted:Qty: 1 on 04/12/2018 at [facility] [employer] 07/27/2020 S620GH / / [id number] [employer] [id number] Lloyd 10mm 14cm 4.5 Loop Soft Radiopacity .018in Coil - [id number] Implanted:Qty: 1 on 04/12/2018 at [facility] [employer] 12/13/2022 C12961 / / [id number] [employer] S620gh Embosphere Saline Syringe Compressible Nonaggregate Highly Target - [id number] Implanted:Qty: 1 on 04/12/2018 at [facility] [employer] 07/27/2020 S620GH / / [id number] [employer] [id number] Lloyd 8mm 14cm 5.6 Loop Soft Radiopacity Peripheral .018in Coil - [id number] Implanted:Qty: 1 on 04/12/2018 at [facility] [employer] 12/27/2022 I83140 / / [id number] [employer] [id number] Angio-Seal Vip Bondek-Plus 6fr .035in 70cm Hemostatic Latex Free - [id number] Implanted:Qty: 1 on 04/12/2018 at [facility] [employer] 01/27/2019 400370 / / [id number] [facility] S620 Embosphere Saline Syringe Compressible Nonaggregate Highly Target - [id number] Implanted:Qty: 1 on 04/12/2018 at [facility] 07/27/2020 S620 / / [id number] [facility] S620 Embosphere Saline Syringe Compressible Nonaggregate Highly Target - [id number] Implanted:Qty: 1 on 04/12/2018 at [facility] 11/26/2020 S620 / / [id number] [facility] S620 Embosphere Saline Syringe Compressible Nonaggregate Highly Target - [id number] Implanted:Qty: 1 on 04/12/2018 at [facility] 07/27/2020 S620 / / [id number] [facility] S620 [employer] Saline Syringe Compressible Nonaggregate Highly Target - [id number] Implanted:Qty: 1 on 04/12/2018 at [facility] 11/26/2020 S620 / / [id number] [facility] S620 [employer]osphere Saline Syringe Compressible Nonaggregate Highly Target - [id number] Implanted:Qty: 1 on 04/12/2018 at [facility] 11/26/2020 S620 / / [id number] [employer] [id number] Lloyd 10mm 14cm 4.5 Loop Soft Radiopacity .018in Coil - [id number] Implanted:Qty: 1 on 04/12/2018 at [facility] [employer] 12/13/2022 F43307 / / [id number] Insurance [facility] ADV[facility] MEDICARE [facility] Advance Directives For more information, please contact: [phone] * Full Code (Latest Code Status on File) Date Activated Date Inactivated Comments 04/12/2018 1:59 PM 04/18/2018 4:16 PM * Full Code Date Activated Date Inactivated Comments 04/12/2018 10:16 AM 04/12/2018 1:59 PM * Full Code Date Activated Date Inactivated Comments 04/12/2018 10:01 AM 04/12/2018 10:16 AM Care Teams Back Office Medical Assistant Relationship Specialty Start Date End Date Diaz Durant MD PCP - General Family Medicine 02/22/18
--- OUTSIDE RECORDS SUMMARY | 2025-03-15 10:05 | XMS_ITS | Encounter Summary ---
Author Organization [facility] Address [address] [place] [address] Care Team Providers Care Loss Prevention Consultant Name Role Phone Diaz Durant MD Primary Care Provider [phone] Encounter Details Date Type Department Care Team (Late Contact Info) Description 02/25/2020 Chart Note [facility] Radiation Therapy [address] [place] [address] [place] [address] [place] [address] Social History Tobacco Use Types [...] 03/22/2025 2:35 PM CDT Telephone Check Up [facility] Oncology and Hematology - Brian [address] [place], [place] [address] [place] [address] Pancho Fleming MD [address] [facility] [address] [place] [address] documented as of this encounter Visit Diagnoses Not on filedocumented in this encounter Care Teams Loss Prevention Consultant Relationship Specialty Start Date End Date Diaz Durant MD [address] [place] [address] PCP - General Family Practice 08/29/18 documented as of this encounter
--- OUTSIDE RECORDS SUMMARY | 2025-03-15 10:05 | XMS_ITS | Encounter Summary ---
Author Organization [facility] Healthcare Address [address] [place] [address] Care Team Providers Care Cut Tobacco Bulker Name Role Phone Roger Ferreira MD Primary Care Provide r Diaz Durant MD Primary Care Provider [phone] Encounter Details Date Type Department Care Team (Late st Contact Info) Description 01/17/2018 Orders Only [facility] Health Information Management [address] [place] [id number] Scanning, Provider Social History Tobacco Use Types Packs/Day Years Used Date Smoking Tobacco: Never Assessed Comments Unknown Sex and Gender Information Value Date Recorded Sex Assigned at Not on file Legal Sex Female 12:26 AM [employer] Gender Identity Not on file Sexual [...] on filedocumented in this encounter Care Teams Cut Tobacco Bulker Relationship Specialty Start Date End Date Roger Ferreira MD [address] [place] [address] PCP - General Emergency Medicine 12/28/17 02/21/18 Diaz Durant MD [address] [place] [address] PCP - General Family Medicine 02/22/18 documented as of this encounter
== END 2025-03-15 09:35 | disposition home or self-care (01) ==
PROVIDERS: PCP Family Medicine; Visit Provider Internal Medicine Hematology & Oncology
DX: K86.89 Other specified diseases of pancreas (principal); K43.9 Ventral hernia without obstruction or gangrene; K80.20 Calculus of gallbladder without cholecystitis without obstruction; C64.2 Malignant neoplasm of left kidney, except renal pelvis
CPT/HCPCS: 71260; 74177; Q9967